=== PATIENT | male | born 1935 | race Caucasian/White ===

== ENCOUNTER 2018-04-25 02:53 | Outpatient (CLI) | payer MEDICARE, SELFPAY ==
[2018-04-25 11:13] LABS: Anion Gap 7.8 mmol/L (3-11); BUN 17 mg/dL (7-18); CO2 26.2 mmol/L (21.0-32.0); CREATININE 1.66 mg/dL (0.70-1.30); Calcium 8.7 mg/dL (8.5-10.1); Chloride 109 mmol/L (98-107); Estimated GFR 39.96 (mL/min/1.73m2); Glucose 103 mg/dL (70-100); Potassium 4.5 mmol/L (3.5-5.1); Sodium 143 mmol/L (136-145)
== END 2018-04-25 02:54 ==
PROVIDERS: PCP Family Medicine; Visit Provider Family Medicine
DX: N18.3 Chronic kidney disease, stage 3 (moderate) (principal)
CPT/HCPCS: 36415; 80048

== ENCOUNTER 2018-05-25 13:55 | Outpatient (CLI) | payer MEDICARE, BC, SELFPAY ==
[2018-05-25 14:22] LABS: Abs Immature Grans 0.02 k/cumm (0.0-0.09); Absolute Basophil Count 0.03 k/cumm (0.0-0.2); Absolute Eosinophil Count 0.14 k/cumm (0.0-0.7); Absolute Lymphocyte Count 1.63 k/cumm (1.2-3.4); Absolute Monocyte Count 0.56 k/cumm (0.11-0.7); Absolute Neutrophil Count 4.33 k/cumm (1.2-6.7); Basophils % 0.4; Eosinophils % 2.1; HCT 43.3 % (40.0-50.0); HGB 14.6 g/dL (13.5-17.5); Immature Grans % 0.3; Lymphocytes % 24.3; Mean Corp. HGB Concentration 33.7 g/dL (32.0-36.0); Mean Corpuscular Hemoglobin 31.8 pg (27.0-33.0); Mean Corpuscular Volume 94.3 fL (80-95); Mean Platelet Volume 10.3 fL (8.0-11.0); Monocytes % 8.3; Neutrophils % 64.6; Platelet Count 168 x1000/uL (130-400); RBC 4.59 m/cumm (4.50-6.00); RBC Distribution Width 13.4 % (11.8-14.1); White Blood Cell Count 6.71 k/cumm (4.4-10.8)
[2018-05-25 15:17] LABS: LDH 138 U/L (85-227)
== END 2018-05-25 14:15 ==
PROVIDERS: PCP Family Medicine; Visit Provider Family Medicine
DX: R21 Rash and other nonspecific skin eruption (principal); L29.9 Pruritus, unspecified
CPT/HCPCS: 36415; 83615; 85025

== ENCOUNTER 2019-06-19 11:08 | Outpatient (CLI) | payer MEDICARE, SELFPAY ==
[2019-06-19 12:49] LABS: Anion Gap 6.1 mmol/L (3-11); BUN 18 mg/dL (7-18); CO2 28.9 mmol/L (21.0-32.0); CREATININE 1.38 mg/dL (0.70-1.30); Calcium 9.2 mg/dL (8.5-10.1); Chloride 108 mmol/L (98-107); Estimated GFR 49.33 (mL/min/1.73m2); Glucose 68 mg/dL (70-100); Potassium 4.6 mmol/L (3.5-5.1); Sodium 143 mmol/L (136-145)
== END 2019-06-19 11:28 ==
PROVIDERS: PCP Family Medicine; Visit Provider Family Medicine
DX: N18.9 Chronic kidney disease, unspecified (principal)
CPT/HCPCS: 36415; 80048

== ENCOUNTER 2020-02-03 01:51 | Outpatient (CLI) | payer MEDICARE, BC, SELFPAY ==
[2020-02-03 14:32] LABS: Anion Gap 9.6 mmol/L (3-11); BUN 17 mg/dL (7-18); CO2 27.4 mmol/L (21.0-32.0); CREATININE 1.57 mg/dL (0.70-1.30); Calcium 8.6 mg/dL (8.5-10.1); Chloride 107 mmol/L (98-107); Glucose 68 mg/dL (74-106); Potassium 4.2 mmol/L (3.5-5.1); Sodium 144 mmol/L (136-145)
== END 2020-02-03 02:11 ==
PROVIDERS: PCP Family Medicine; Visit Provider Family Medicine
DX: N18.9 Chronic kidney disease, unspecified (principal)
CPT/HCPCS: 36415; 80048

== ENCOUNTER 2020-02-17 19:15 | Outpatient (REF) | payer MEDICARE, BC, SELFPAY ==
[2020-02-17 20:00] LABS: TSH (W/Ref FT4) 0.31 uIU/mL (0.36-3.74); Vitamin B12 318 pg/mL (193-986)
[2020-02-17 20:48] LABS: FREE T4 1.05 ng/dL (0.76-1.46)
[2020-02-19 11:23] LABS: Syphilis Serology (RPR) Negative (Negative)
== END 2020-02-17 19:35 ==
LOC: LBN 19:15
PROVIDERS: PCP Family Medicine; Visit Provider Family Medicine
DX: R41.3 Other amnesia (principal); I10 Essential (primary) hypertension
CPT/HCPCS: 82607; 84439; 84443; 86592

== ENCOUNTER → 2020-03-09 09:34 | Outpatient (BNVA) | payer MEDICARE, BC, SELFPAY | PROVIDERS: PCP Family Medicine; Referring Provider Family Medicine; Visit Provider Nurse Practitioner Adult Health | DX: G31.83 Neurocognitive disorder with Lewy bodies (principal); F02.80 Dementia in other diseases classified elsewhere, unspecified severity, without behavioral disturbance, psychotic disturbance, mood disturbance, and anxiety; I10 Essential (primary) hypertension | CPT/HCPCS: 99204; 99215 ==

== ENCOUNTER → 2020-04-06 12:59 | Outpatient (BNVA) | payer MEDICARE, BC, SELFPAY | PROVIDERS: PCP Family Medicine; Referring Provider Family Medicine; Visit Provider Nurse Practitioner Adult Health | DX: G31.83 Neurocognitive disorder with Lewy bodies (principal); F02.80 Dementia in other diseases classified elsewhere, unspecified severity, without behavioral disturbance, psychotic disturbance, mood disturbance, and anxiety; I10 Essential (primary) hypertension | CPT/HCPCS: 99213 ==

== ENCOUNTER 2020-08-11 11:44 | Emergency (ER) | payer MEDICARE, BC, SELFPAY ==
[2020-08-11] VITALS (26 sets, daily range): BP systolic 141–193; BP diastolic 83–99; PULSE 77–94; RESP 15–24; TEMP 36.8; O2SAT 86–99
--- NOTE | 2020-08-11 11:45 | RT.EKG_ITS ---
APPROVED REPORT Exam: Resting ECG Patient Location: E HR:88 bpm ECG Measurements Heart Rate 88 AXIS GA 180 P 18 QRSd 86 QRS 16 QT 392 T -1 QTc 474 Conclusion Sinus rhythm...normal P axis, V-rate 60- 99 Probable left atrial enlargement...P >50mS, <-0.10mV V1 Anteroseptal infarct, old...Q >40mS, V1-V2 I have reviewed and interpreted ECG and agree with software generated interpretation.
--- NOTE | 2020-08-11 11:54 | W.ED.GENAD ---
Discharge Plan Disposition Patient Disposition: HOME Condition: Improving Discharge Details Clinical Impression: Bilateral leg weakness, Fall, Abrasion of back Primary Care Provider: Derek Leal ED Provider: Vivian Astudillo Home Meds and New Rx's Prescriptions: Continued omeprazole 20 MG capsule,delayed release(DR/EC) 20 mg PO DAILY Qty: 90 RF: 1 multivitamin [Daily Multi-Vitamin] 1 EACH tablet 1 ea PO DAILY RF: 0 docusate sodium [Colace] 100 MG capsule 300 mg PO HS RF: 0 Probiotic 1 EACH capsule 1 ea PO DAILY RF: 0 pravastatin 20 mg tablet 20 mg PO DAILY Qty: 90 RF: 3 Discharge Instructions Instructions: Fall Prevention for Older Adults (ED), Abrasion (ED), Weakness (ED) Additional Instructions: Drink plenty of fluids and get plenty of rest. Use your walker that you have at home for ambulation to help with stabilization and prevent falls. Alternate tylenol and motrin as needed and directed for pain. Follow-up with your primary care doctor in 1 week. Return to the emergency department with any worsening or new concerning symptoms. Discharge Data Discharge Date/Time-TO BE ENTERED AT DEPARTURE: 08/11/20 15:10 Discharge Physician: Vivian Astudillo Medical Decision Making 1155 -- 85-year-old male with a history of dementia, hypertension, hyperlipidemia, chronic kidney disease, obesity presents for bilateral leg weakness and follow-up today when his legs gave out. EKG notes a rate of 88, sinus with no acute ST ischemic changes and nondiagnostic. He is afebrile and appears nontoxic. Patient has no acute complaints at this time. Lungs clear. Abdomen soft nontender. He has abrasion to his left upper back but no midline spinal tenderness. No focal deficits. Moving all extremities. Differential diagnosis includes dehydration, electrolyte abnormality, CVA, UTI, pneumonia, rib fracture. Will place an IV, bolus IV fluids, screening labs, urinalysis, CT head and cervical spine and CT chest to rule out fracture versus pneumonia and give IV Tylenol and reassess. 1445 -- Labs and imaging reviewed and unremarkable. Normal white blood cell count. Troponin negative. Urinalysis negative. CT imaging reviewed and negative. Patient reassessed and he was able to ambulate with a walker and stand on his own while bracing himself with walker. Case discussed with over the phone and patient has a walker at home that he rarely uses. Advised that I do not see indication for acute admission at this time and that he is recommended to use his walker for ambulation assistance. Advised to follow-up with a primary care doctor for evaluation and to return here with any concerns. Medical Records Medical records reviewed: Yes I reviewed the patient's medical records. Imaging Data Radiologic Study: Radiologist's impression: Laboratory Tests Range/Units 08/11/20 08/11/20 08/11/20 12:05 12:05 13:30 WBC (4.4-10.8) 10^3/uL 7.52 RBC (4.36-5.78) 10^6/uL 4.84 Hgb (13.5-17.5) g/dL 15.2 Hct (40.0-50.0) % 45.6 MCV (80-95) fL 94.2 MCH (27.0-33.0) pg 31.4 MCHC (32.0-36.0) % 33.3 RDW (11.8-14.1) % 12.8 Plt Count (130-400) 10^3/uL 156 MPV (8.0-11.0) fL 10.4 Immature Gran % 0.4 Neutrophils % 78.3 Lymphocytes % 13.3 Monocytes % 6.0 Eosinophils % 1.6 Basophils % 0.4 Nucleated RBC % % 0 Absolute Neutrophils (1.2-6.7) 10^3/uL 5.89 Absolute Lymphocytes (1.2-3.4) 10^3/uL 1.00 L Absolute Monocytes (0.1-0.8) 10^3/uL 0.45 Absolute Eosinophils (0.0-0.7) 10^3/uL 0.12 Absolute Basophils (0.0-0.2) 10^3/uL 0.03 Sodium (136-145) mmol/L 141 Potassium (3.5-5.1) mmol/L 4.2 Chloride (98-107) mmol/L 108 H Carbon Dioxide (21.0-32.0) mmol/L 28.9 Anion Gap (3-11) mmol/L 4.1 BUN (7-18) mg/dL 16 Creatinine (0.70-1.30) mg/dL 1.58 H Estimated GFR/1.73 m2 (mL/min/1.73m2) 41.99 Glucose (74-106) mg/dL 76 Calcium (8.5-10.1) mg/dL 9.0 Magnesium (1.8-2.4) mg/dL 2.0 Total Bilirubin (0.2-1.0) mg/dL 0.5 AST (15-37) U/L 14 L ALT (16-63) U/L 19 Alkaline Phosphatase (46-116) U/L 76 Troponin I (<0.06) ng/mL < 0.05 Total Protein (6.4-8.2) g/dL 7.3 Albumin (3.4-5.0) g/dL 3.8 Urine Color (Yellow) Yellow Urine Clarity (Clear) Clear Urine pH (5-8) 6.0 Ur Specific [place] (1.005-1.025) 1.025 Urine Protein (Negative) mg/dL Negative Urine Ketones (Negative) mg/dL Negative Urine Blood (Negative) Negative Urine Nitrite (Negative) Negative Urine Bilirubin (Negative) Negative Urine Urobilinogen (Up TO 0.2) EU/dL 0.2 Ur Leukocyte Esterase (Negative) Negative Urine Glucose (Negative) mg/dL Negative CT HEAD CERVICAL SPINE WO CLINICAL HISTORY: s/p fall, r/o acute process. TECHNIQUE: Imaging Protocol: Axial computed tomography images with coronal and sagittal reformatted images were created and reviewed COMPARISON: No exams were available for comparison FINDINGS: Head CT Ventricles and Extra axial spaces: Normal in size and morphology for the patient's age. Hemorrhage: None. Cerebral parenchyma: Normal. Mild atrophy, consistent with patient's age. Midline shift: None. Brainstem/Cerebellum: Normal. Calvarium: Normal. Visualized Paranasal sinuses/Mastoids: Clear. Cervical Spine CT BONES: Vertebral body heights are maintained. Alignment is normal. There is no evidence of acute fracture. Degenerative disc changes and facet degenerative changes are seen . SOFT TISSUES: No paraspinal hematoma. The airway appears intact. No pneumothorax is seen at the lung apices. IMPRESSION: Head CT: No acute abnormality. C-spine CT: Degenerative changes, no acute abnormality. CT CHEST WO CLINICAL HISTORY: s/p fall, r/o pneumonia/rib fx TECHNIQUE: Imaging Protocol: Axial computed tomography images with coronal and sagittal reformatted images were created and reviewed CONTRAST MATERIAL: Noncontrast. COMPARISON: No exams were available for comparison FINDINGS: Tracheobronchial tree: Patent where visualized. Mediastinum and Saranya: No dominant adenopathy or fluid collection. Pulmonary parenchyma: Respiratory motion. The lungs are suboptimally inflated. Dependent changes are seen. No consolidation or dominant measurable mass. Pleura: No effusion or pneumothorax. Heart: The heart is mildly dilated. Mitral annular and coronary artery calcifications are seen. Aorta: Thoracic aorta non-dilated. Upper abdomen: Unremarkable. Status post cholecystectomy. Lymph nodes: Within normal limits. Bones: Degenerative disc changes and mild scoliosis in the thoracic spine. No displaced rib fracture. Soft tissues: Unremarkable. IMPRESSION: Limited evaluation of the lungs due to poor pulmonary inflation and respiratory motion. There is no evidence of consolidation, effusion or pneumothorax. No displaced rib fractures are seen. Lab Data Lab results reviewed: Yes I reviewed the patient's lab results. Labs: Laboratory Tests Range/Units 08/11/20 08/11/20 08/11/20 12:05 12:05 13:30 WBC (4.4-10.8) 10^3/uL 7.52 RBC (4.36-5.78) 10^6/uL 4.84 Hgb (13.5-17.5) g/dL 15.2 Hct (40.0-50.0) % 45.6 MCV (80-95) fL 94.2 MCH (27.0-33.0) pg 31.4 MCHC (32.0-36.0) % 33.3 RDW (11.8-14.1) % 12.8 Plt Count (130-400) 10^3/uL 156 MPV (8.0-11.0) fL 10.4 Immature Gran % 0.4 Neutrophils % 78.3 Lymphocytes % 13.3 Monocytes % 6.0 Eosinophils % 1.6 Basophils % 0.4 Nucleated RBC % % 0 Absolute Neutrophils (1.2-6.7) 10^3/uL 5.89 Absolute Lymphocytes (1.2-3.4) 10^3/uL 1.00 L Absolute Monocytes (0.1-0.8) 10^3/uL 0.45 Absolute Eosinophils (0.0-0.7) 10^3/uL 0.12 Absolute Basophils (0.0-0.2) 10^3/uL 0.03 Sodium (136-145) mmol/L 141 Potassium (3.5-5.1) mmol/L 4.2 Chloride (98-107) mmol/L 108 H Carbon Dioxide (21.0-32.0) mmol/L 28.9 Anion Gap (3-11) mmol/L 4.1 BUN (7-18) mg/dL 16 Creatinine (0.70-1.30) mg/dL 1.58 H Estimated GFR/1.73 m2 (mL/min/1.73m2) 41.99 Glucose (74-106) mg/dL 76 Calcium (8.5-10.1) mg/dL 9.0 Magnesium (1.8-2.4) mg/dL 2.0 Total Bilirubin (0.2-1.0) mg/dL 0.5 AST (15-37) U/L 14 L ALT (16-63) U/L 19 Alkaline Phosphatase (46-116) U/L 76 Troponin I (<0.06) ng/mL < 0.05 Total Protein (6.4-8.2) g/dL 7.3 Albumin (3.4-5.0) g/dL 3.8 Urine Color (Yellow) Yellow Urine Clarity (Clear) Clear Urine pH (5-8) 6.0 Ur Specific [place] (1.005-1.025) 1.025 Urine Protein (Negative) mg/dL Negative Urine Ketones (Negative) mg/dL Negative Urine Blood (Negative) Negative Urine Nitrite (Negative) Negative Urine Bilirubin (Negative) Negative Urine Urobilinogen (Up TO 0.2) EU/dL 0.2 Ur Leukocyte Esterase (Negative) Negative Urine Glucose (Negative) mg/dL Negative ECG Data Attestation: I personally reviewed and interpreted this ECG (s) as follows: Interpretation: Rate of 88, sinus, T wave inversion in lead III. No acute ST elevation or depression. MN 180. QRS 86. QTc 474. HPI General Mode of arrival: EMS. Date/Time Provider Initiated Documentation: 08/11/20 11:47. Limitations to Documentation: no limitations. Information obtained by: patient. HPI Narrative: Patient is an 85-year-old male with a history of dementia, hypertension, hyperlipidemia, chronic kidney disease, obesity presents for follow-up today after both of my legs gave out while walking. Patient states he was walking from the bathroom when he felt both of his legs gave out and he fell to the ground. He states he is unsure if he hit his head but denies any LOC or vomiting. He states he had been feeling fine yesterday and today. He denies any recent travel, recent known sick contacts, recent known exposure to coronavirus, recent antibiotics or recent hospital admissions. He denies any fever, chest pain, shortness of breath, abdominal pain, nausea, vomiting, diarrhea, urinary symptoms, headache or dizziness. Related Data Home Medications Medication Instructions Recorded Confirmed omeprazole 20 mg PO DAILY #90 tab-cap 12/26/12 08/11/20 multivitamin [Daily Multi-Vitamin] 1 ea PO DAILY tab 12/06/16 08/11/20 docusate sodium [Colace] 300 mg PO HS tab-cap 01/30/17 08/11/20 Probiotic 1 ea PO DAILY cap 03/20/17 08/11/20 pravastatin 20 mg tablet 20 mg PO DAILY #90 tab-cap 12/30/19 08/11/20 Previous Rx's Medication Instructions Recorded pravastatin 20 mg tablet 20 mg PO DAILY #90 tab-cap 12/30/19 Allergies Allergy/AdvReac Type Severity Reaction Status Date / Time No Known Drug Allergies Allergy Verified 08/11/20 11:53 General Stated Complaint: Dizzy/Sync ALEJANDRO: 2 Review of Systems All systems reviewed & are unremarkable except as noted in HPI and below Constitutional Constitutional: Reports as per HPI, Denies chills and Denies fever(s) Eyes Eyes: Denies blurry vision ENT Ears, Nose, Mouth, and Throat: Denies dizziness, Denies sore throat and Denies throat swelling Cardiovascular Cardiovascular: Denies chest pain and Denies dyspnea Respiratory Respiratory: Denies cough and Denies dyspnea Gastrointestinal Gastrointestinal: Denies abdominal pain, Denies diarrhea and Denies vomiting Genitourinary Genitourinary: Denies hematuria and Denies dysuria Musculoskeletal Musculoskeletal: Denies back pain and Denies numbness Integumentary/Breasts Skin/Breast: Denies lesions and Denies rash Neurologic Neurologic: Denies dizziness, Denies localized weakness, Denies numbness and Reports other (legs gave out) Allergic/Immunologic Allergic/Immunologic: Denies throat swelling [facility] Medical History Constipation DJD (degenerative joint disease) Essential hypertension Hallucination Heart burn Hyperlipidemia Lewy body dementia Obesity Osteoarthrosis involving shoulder region Small bowel obstruction Tubular adenoma of colon Varicose veins Surgical History Arthroplasty of knee 1986 Arthroscopy, Shoulder 1986 Cholecystectomy (07/16/12) JOSIAS Colonoscopy - IV Sedation 2008 EGD - IV Sedation 2004-Dr. Devora Meléndez shoulder (01/15/14) Balbir Leblanc, ? total shoulder prosthesis Replacement of total knee joint (10/07/14) Rika knee, Balbir Booker Transurethral prostatectomy 1986 Family History Mother No problems noted. Father , stomach ca at age 64. No problems noted. Other Brain tumor Breast cancer Rheumatic fever Stomach cancer TIA (transient ischemic attack) Social History Smoking/Tobacco Use Status: Former Tobacco Use Smokeless tobacco user: other Smoking risk assessment performed?: Yes Alcohol Intake: never Drug use: Never Substance use type: does not use Household members: spouse Housing: house Number of Children: 3 Communication Needs: None Pets and animals: No Current gender identity: male What is your relationship status?: Panel score (0-1 are the most socially isolated patients): 1 What type of physical activity do you participate in: none Seatbelt use: always 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 Working smoke detector in home: Yes Fire extinguisher in home: No Carbon monox detector in home: Yes Do you feel safe in your relationship?: Yes Exam Const General: cooperative and no acute distress Orientation: alert, awake and oriented x3 HENMT Head: normal to inspection Ears: hearing grossly normal bilaterally, external ears normal and TM's normal bilaterally General nose exam: external nose normal Face and sinus: normal facial exam Mouth: oral mucosae normal Teeth and gingiva: dentition normal Throat: posterior oropharynx normal Eyes General: appearance normal, both eyes and all related structures Eyelids: eyelids normal Pupils: PERRL EOM: EOM intact bilaterally Neck Neck: normal visual inspection Lymphatic: no lymphadenopathy noted Chest Chest: normal inspection of the chest Resp Effort & Inspection: normal respiratory effort and able to speak in complete sentences Auscultation: clear to auscultation bilaterally Cardio Rate: regular rate Rhythm: regular rhythm GI Inspection: normal to inspection Palpation: soft, not firm, no guarding, no hepatosplenomegaly, no masses and nontender Auscultation: normal bowel sounds Back/Spine/Pelvis Back: no CVA tenderness Cervical Spine: No cervical spinal tenderness Thoracic/Lumbar Spine: No thoracic spinal tenderness and No lumbar spinal tenderness Back/spine/pelvis image: 1. Superficial scattered abrasions. No lacerations, no active bleeding. No crepitus or step-off. Skin General skin exam: no rashes or lesions noted Neuro General: patient alert and patient awake Cranial Nerves: CN's II-XI intact bilaterally Cognition: normal cognition Speech: speech normal Gait: normal gait Motor: muscle tone normal throughout and strength 5/5 throughout Sensory Exam: no sensory deficits noted Extrem General: normal to inspection, full ROM and capillary refill normal Other: No pelvis instability. No pain with range of motion of bilateral upper and lower extremities. No orthopedic deformities noted. Psych Appearance: grossly normal Mental Status: mental status grossly normal Speech and Movement: speech and movement normal Affect: normal affect Thought Process: normal Course Vital Signs Vital signs: Vital Signs Temperature 98.2 F 08/11/20 11:45 Pulse 89 08/11/20 11:45 Respiratory Rate 22 08/11/20 11:45 Blood Pressure 193/87 H 08/11/20 11:45 Pulse Oximetry 97 08/11/20 11:45 Temperature 98.2 F 08/11/20 11:45 Temperature Source Temporal Artery Scan 08/11/20 11:45 Pulse 89 08/11/20 11:45 Respiratory Rate 22 08/11/20 11:45 Respiratory Effort Non-Labored 08/11/20 11:51 Blood Pressure 193/87 H 08/11/20 11:45 Blood Pressure Position Supine 08/11/20 11:45 Pulse Oximetry 97 08/11/20 11:45 Oxygen Delivery Method Room Air 08/11/20 11:45 Oxygen Flow Rate 0 08/11/20 11:45 Pain Level 0 08/11/20 11:45
--- NOTE | 2020-08-11 12:00 | DI.CT_ITS ---
EXAM: CT CHEST WO CLINICAL HISTORY: s/p fall, r/o pneumonia/rib fx TECHNIQUE: Imaging Protocol: Axial computed tomography images with coronal and sagittal reformatted images were created and reviewed CONTRAST MATERIAL: Noncontrast. COMPARISON: No exams were available for comparison FINDINGS: Tracheobronchial tree: Patent where visualized. Mediastinum and Saranya: No dominant adenopathy or fluid collection. Pulmonary parenchyma: Respiratory motion. The lungs are suboptimally inflated. Dependent changes ar e seen. No consolidation or dominant measurable mass. Pleura: No effusion or pneumothorax. Heart: The heart is mildly dilated. Mitral annular and coronary artery calcifications are seen. Aorta: Thoracic aorta non-dilated. Upper abdomen: Unremarkable. Status post cholecystectomy. Lymph nodes: Within normal limits. Bones: Degenerative disc changes and mild scoliosis in the thoracic spine. No displaced rib fracture . Soft tissues: Unremarkable. IMPRESSION: Limited evaluation of the lungs due to poor pulmonary inflation and respiratory motion. There is no evidence of consolidation, effusion or pneumothorax. No displaced rib fractures are seen. RADIATION DOSE DELIVERED: 873.24mGy.cm Total DLP DATA REPOSITORY: All CT scans at this facility are submitted to the National Radiology Data Registry (NRDR) Dose Index Registry (DIR) with the [employer] ([employer]). RADIATION OPTIMIZATION: All CT scans at this facility use at least one of these dose optimization te chniques: automated exposure control; mA and/or kV adjustment per patient size (includes targeted exa ms where dose is matched to clinical indication); or iterative reconstruction.
--- NOTE | 2020-08-11 12:00 | DI.CT_ITS ---
EXAM: CT HEAD CERVICAL SPINE WO CLINICAL HISTORY: s/p fall, r/o acute process. TECHNIQUE: Imaging Protocol: Axial computed tomography images with coronal and sagittal reformatted images were created and reviewed COMPARISON: No exams were available for comparison FINDINGS: Head CT Ventricles and Extra axial spaces: Normal in size and morphology for the patient's age. Hemorrhage: None. Cerebral parenchyma: Normal. Mild atrophy, consistent with patient's age. Midline shift: None. Brainstem/Cerebellum: Normal. Calvarium: Normal. Visualized Paranasal sinuses/Mastoids: Clear. Cervical Spine CT BONES: Vertebral body heights are maintained. Alignment is normal. There is no evidence of acute frac ture. Degenerative disc changes and facet degenerative changes are seen . SOFT TISSUES: No paraspinal hematoma. The airway appears intact. No pneumothorax is seen at the lung apices. IMPRESSION: Head CT: No acute abnormality. C-spine CT: Degenerative changes, no acute abnormality. RADIATION DOSE DELIVERED: LINK-TO-SR Total DLP DATA REPOSITORY: All CT scans at this facility are submitted to the National Radiology Data Registry (NRDR) Dose Index Registry (DIR) with the [employer] ([employer]). RADIATION OPTIMIZATION: All CT scans at this facility use at least one of these dose optimization te chniques: automated exposure control; mA and/or kV adjustment per patient size (includes targeted exa ms where dose is matched to clinical indication); or iterative reconstruction.
[2020-08-11 12:15] LABS: Abs Immature Grans 0.03 10^3/uL (0.0-0.06); Absolute Basophil Count 0.03 10^3/uL (0.0-0.2); Absolute Eosinophil Count 0.12 10^3/uL (0.0-0.7); Absolute Monocyte Count 0.45 10^3/uL (0.1-0.8); Absolute Neutrophil Count 5.89 10^3/uL (1.2-6.7); Basophils % 0.4; Eosinophils % 1.6; HCT 45.6 % (40.0-50.0); HGB 15.2 g/dL (13.5-17.5); Immature Grans % 0.4; Lymphocytes % 13.3; MCH 31.4 pg (27.0-33.0); MCHC 33.3 % (32.0-36.0); MCV 94.2 fL (80-95); MPV 10.4 fL (8.0-11.0); Neutrophils % 78.3; Nucleated RBC 0 %; Platelet Count 156 10^3/uL (130-400); RBC 4.84 10^6/uL (4.36-5.78); RDW 12.8 % (11.8-14.1); WBC 7.52 10^3/uL (4.4-10.8)
[2020-08-11 12:30] LABS: ALT 19 U/L (16-63); AST 14 U/L (15-37); Albumin 3.8 g/dL (3.4-5.0); Alkaline Phosphatase 76 U/L (46-116); Anion Gap 4.1 mmol/L (3-11); BUN 16 mg/dL (7-18); Bilirubin, Total 0.5 mg/dL (0.2-1.0); CO2 28.9 mmol/L (21.0-32.0); CREATININE 1.58 mg/dL (0.70-1.30); Chloride 108 mmol/L (98-107); Estimated GFR 41.99 (mL/min/1.73m2); Glucose 76 mg/dL (74-106); Potassium 4.2 mmol/L (3.5-5.1); Sodium 141 mmol/L (136-145); Total Protein 7.3 g/dL (6.4-8.2); Troponin I < 0.05 ng/mL (<0.06)
[2020-08-11] MEDS: ACETAMINOPHEN 1,000 MG/100 ML BTL 400 MG IVPB (13:11)
[2020-08-11] MEDS: Normal Saline 1,000 ML 1000 ML IV (13:11)
[2020-08-11 13:36] LABS: Bilirubin Negative (Negative); Blood Negative (Negative); Clarity Clear (Clear); Glucose Negative (Negative); Ketones Negative (Negative); Leukocyte Esterase Negative (Negative); Nitrite Negative (Negative); Specific Gravity 1.025 (1.005-1.025); Urobilinogen 0.2 EU/dL (Up TO 0.2)
== END 2020-08-11 15:10 | disposition home or self-care (01) ==
PROVIDERS: Emergency Provider Physician Assistant; PCP Family Medicine
DX: M62.81 Muscle weakness (generalized) (principal); S20.412A Abrasion of left back wall of thorax, initial encounter; W18.39XA Other fall on same level, initial encounter; G31.83 Neurocognitive disorder with Lewy bodies; F02.80 Dementia in other diseases classified elsewhere, unspecified severity, without behavioral disturbance, psychotic disturbance, mood disturbance, and anxiety; I12.9 Hypertensive chronic kidney disease with stage 1 through stage 4 chronic kidney disease, or unspecified chronic kidney disease; N18.9 Chronic kidney disease, unspecified
CPT/HCPCS: 36415; 71250; 80053; 93005; 96361; 96374; 99285; 70450; 72125; 81003; 83735; 84484; 85025; 93010; J0131

== ENCOUNTER → 2020-08-24 08:24 | Outpatient (BNVA) | payer MEDICARE, BC, SELFPAY | PROVIDERS: PCP Family Medicine; Referring Provider Family Medicine; Visit Provider Nurse Practitioner Adult Health | DX: G31.83 Neurocognitive disorder with Lewy bodies (principal); F02.80 Dementia in other diseases classified elsewhere, unspecified severity, without behavioral disturbance, psychotic disturbance, mood disturbance, and anxiety | CPT/HCPCS: 99212; 99441 ==

== ENCOUNTER → 2020-10-29 13:29 | Outpatient (BNVA) | payer MEDICARE, BC, SELFPAY | PROVIDERS: PCP Family Medicine; Referring Provider Family Medicine; Visit Provider Nurse Practitioner Adult Health | DX: G62.9 Polyneuropathy, unspecified (principal); G31.83 Neurocognitive disorder with Lewy bodies; I95.1 Orthostatic hypotension; R26.81 Unsteadiness on feet | CPT/HCPCS: 99213; 99215 ==

== ENCOUNTER 2020-11-10 02:22 | Outpatient (CLI) | payer MEDICARE, BC, SELFPAY ==
[2020-11-10 09:30] LABS: Hemoglobin A1C 5.4 % (<5.7)
[2020-11-11 14:23] LABS: Albumin 58.9 % (55.8-66.1); Total Protein 6.6 g/dL (6.3-8.2)
== END 2020-11-10 02:23 | disposition home or self-care (01) ==
LOC: LBO 02:23
PROVIDERS: PCP Family Medicine; Visit Provider Nurse Practitioner Adult Health
DX: R73.9 Hyperglycemia, unspecified (principal); G62.9 Polyneuropathy, unspecified
CPT/HCPCS: 36415; 83036; 84165

== ENCOUNTER → 2020-11-17 14:58 | Outpatient (BNVA) | payer MEDICARE, BC, SELFPAY | PROVIDERS: PCP Family Medicine; Referring Provider Family Medicine; Visit Provider Psychiatry & Neurology Neurology | DX: G31.83 Neurocognitive disorder with Lewy bodies (principal); F02.80 Dementia in other diseases classified elsewhere, unspecified severity, without behavioral disturbance, psychotic disturbance, mood disturbance, and anxiety; R44.3 Hallucinations, unspecified; R41.3 Other amnesia; I95.1 Orthostatic hypotension; R26.81 Unsteadiness on feet | CPT/HCPCS: 99215; G2212 ==

== ENCOUNTER → 2020-12-22 07:50 | Outpatient (BNVA) | payer MEDICARE, BC, SELFPAY | PROVIDERS: PCP Family Medicine; Referring Provider Family Medicine; Visit Provider Nurse Practitioner Adult Health | DX: R26.81 Unsteadiness on feet (principal); G31.83 Neurocognitive disorder with Lewy bodies; F02.80 Dementia in other diseases classified elsewhere, unspecified severity, without behavioral disturbance, psychotic disturbance, mood disturbance, and anxiety | CPT/HCPCS: 99213; 99443 ==

== ENCOUNTER → 2021-02-08 12:52 | Outpatient (BNVA) | payer MEDICARE, BC, SELFPAY | PROVIDERS: PCP Family Medicine; Referring Provider Family Medicine; Visit Provider Nurse Practitioner Adult Health | DX: G31.83 Neurocognitive disorder with Lewy bodies (principal); F02.80 Dementia in other diseases classified elsewhere, unspecified severity, without behavioral disturbance, psychotic disturbance, mood disturbance, and anxiety | CPT/HCPCS: 99213; 99215 ==

== ENCOUNTER 2021-05-13 17:53 | Inpatient (IN) | payer MEDICARE, BC, SELFPAY ==
[2021-05-13] VITALS (41 sets, daily range): BP systolic 139–221; BP diastolic 79–116; PULSE 69–86; RESP 16–26; TEMP 36.5–37.1; O2SAT 93–97
--- NOTE | 2021-05-13 17:52 | ED.GENADUL_ITS ---
Discharge Plan Disposition Patient Disposition: [facility] INPATIENT Condition: Stable Discharge Details Clinical Impression: Ambulatory dysfunction, Generalized weakness, Frequent falls Admit Date/Time: 05/13/21 19:43 Admit Provider: Sterling Rod Attending Provider: Sterling Rod Primary Care Provider: Derek Leal ED Provider: Vivian Astudillo Discharge Data Discharge Date/Time-TO BE ENTERED AT DEPARTURE: 05/13/21 21:55 Medical Decision Making 85-year-old male with a history of dementia, hypertension, hyperlipidemia, chronic kidney disease, obesity presents for frequent falls today. Denies any blunt injury or fall to the ground today. states this is consistent with his usual frequent falls associated with his legs giving out . Blood pressure hypertensive otherwise vitals within normal limits. Patient is oriented x2 which is his baseline, not oriented to time. He has no focal deficits on exam. He is moving all extremities but appears generally weak. states she is concerned about taking patient home as she is the only 1 to help him at home and she is unable to assist him when needed with his walker. History and presentation does not appear consistent with acute CVA. Screening labs obtained on arrival and unremarkable for acute findings. Urinalysis negative for UTI. Ambulated patient and he was able to ambulate with his walker with assistance. again expressed concern with taking patient home as he can ambulate at times but other times is unable. She states she will not take him home as she is concerned about being able to handle him alone. We will admit patient for evaluation with PT and consideration for rehab if needed. Case discussed with hospitalist accepts patient for admission. Medical Records Medical records reviewed: Yes I reviewed the patient's medical records. Lab Data Lab results reviewed: Yes I reviewed the patient's lab results. Labs: Laboratory Tests Range/Units 05/13/21 05/13/21 05/13/21 18:17 18:17 18:30 WBC (4.4-10.8) 10^3/uL 6.29 RBC (4.36-5.78) 10^6/uL 4.68 Hgb (13.5-17.5) g/dL 14.6 Hct (40.0-50.0) % 44.6 MCV (80-95) fL 95.3 H MCH (27.0-33.0) pg 31.2 MCHC (32.0-36.0) % 32.7 RDW (11.8-14.1) % 12.5 Plt Count (130-400) 10^3/uL 162 MPV (8.0-11.0) fL 10.3 Immature Gran % 0.2 Neutrophils % 66.4 Lymphocytes % 22.1 Monocytes % 8.1 Eosinophils % 2.9 Basophils % 0.3 Nucleated RBC % % 0 Absolute Neutrophils (1.2-6.7) 10^3/uL 4.18 Absolute Lymphocytes (1.2-3.4) 10^3/uL 1.39 Absolute Monocytes (0.1-0.8) 10^3/uL 0.51 Absolute Eosinophils (0.0-0.7) 10^3/uL 0.18 Absolute Basophils (0.0-0.2) 10^3/uL 0.02 Sodium (136-145) mmol/L 143 Potassium (3.5-5.1) mmol/L 3.9 Chloride (98-107) mmol/L 109 H Carbon Dioxide (21.0-32.0) mmol/L 27.6 Anion Gap (3-11) mmol/L 6.4 BUN (7-18) mg/dL 18 Creatinine (0.70-1.30) mg/dL 1.5 H Estimated GFR/1.73 m2 (mL/min/1.73m2) 44.59 Glucose (74-106) mg/dL 76 Calcium (8.5-10.1) mg/dL 8.7 Total Bilirubin (0.2-1.0) mg/dL 0.3 AST (15-37) U/L 10 L ALT (16-63) U/L 19 Alkaline Phosphatase (46-116) U/L 74 Total Protein (6.4-8.2) g/dL 7.1 Albumin (3.4-5.0) g/dL 3.7 Urine Color (Yellow) Yellow Urine Clarity (Clear) Clear Urine pH (5-8) 5.5 Ur Specific [place] (1.005-1.025) >= 1.030 H Urine Protein (Negative) mg/dL Negative Urine Ketones (Negative) mg/dL Trace H Urine Blood (Negative) Negative Urine Nitrite (Negative) Negative Urine Bilirubin (Negative) Negative Urine Urobilinogen (Up TO 0.2) EU/dL 0.2 Ur Leukocyte Esterase (Negative) Negative Urine Glucose (Negative) mg/dL Negative ECG Data Attestation: I personally reviewed and interpreted this ECG (s) as follows: Interpretation: Rate of 79, sinus, no acute ST elevation or depression. VA 190. QRS 90. QTc 454. HPI General Mode of arrival: EMS . Date/Time Provider Initiated Documentation: 05/13/21 18:02 . Limitations to Documentation: no limitations . Information obtained by: patient and family . HPI Narrative: Patient is an 85-year-old male with a history of dementia, hypertension, hyperlipidemia, chronic kidney disease, obesity presents for frequent falls today. states that patient uses a walker at baseline for ambulation but has a history of his legs giving out . Patient states he was walking several times today and his legs gave out and he fell but was able to catch himself. states just prior to arrival, he was unable to stand up at all due to leg weakness. She states this is consistent with his previous episodes of difficulty with ambulation and leg weakness and frequent falls. She denies any recent fever, vomiting, diarrhe a, chest pain, shortness of breath. Related Data Home Medications Medication Instructions Recorded Confirmed omeprazole 20 mg PO DAILY #90 tab-cap 12/26/12 05/13/21 multivitamin [Daily Multi-Vitamin] 1 ea PO DAILY tab 12/06/16 05/13/21 docusate sodium [Colace] 300 mg PO HS tab-cap 01/30/17 05/13/21 Probiotic 1 ea PO DAILY cap 03/20/17 05/13/21 mecobalamin (vitamin B12) 1,000 1,000 mcg PO DAILY 12/22/20 05/13/21 mcg chewable tablet pravastatin 10 mg tablet 10 mg PO QHS #1 tab 03/12/21 05/13/21 Previous Rx's Medication Instructions Recorded pravastatin 10 mg tablet 10 mg PO QHS #1 tab 03/12/21 Allergies Allergy/AdvReac Type Severity Reaction Status Date / Time No Known Drug Allergies Allergy Verified 05/13/21 18:04 General ALEJANDRO: 2 Review of Systems All systems reviewed & are unremarkable except as noted in HPI and below Constitutional Constitutional: Reports as per HPI, Denies chills, Denies fever(s) and Reports weakness Eyes Eyes: Denies blurry vision ENT Ears, Nose, Mouth, and Throat: Denies dizziness, Denies sore throat and Denies throat swelling Cardiovascular Cardiovascular: Denies chest pain and Denies dyspnea Respiratory Respiratory: Denies cough and Denies dyspnea Gastrointestinal Gastrointestinal: Denies abdominal pain, Denies diarrhea and Denies vomiting Genitourinary Genitourinary: Denies hematuria and Denies dysuria Musculoskeletal Musculoskeletal: Denies back pain and Denies numbness Integumentary/Breasts Skin/Breast: Denies lesions and Denies rash Neurologic Neurologic: Denies dizziness, Denies localized weakness, Denies numbness and Reports weakness Allergic/Immunologic Allergic/Immunologic: Denies throat swelling [facility] Medical History Constipation DJD (degenerative joint disease) DNI (do not intubate) DNR (do not resuscitate) Essential hypertension Hallucination Heart burn Hyperlipidemia Hypotension Lewy body dementia Obesity Orthostatic hypotension Osteoarthrosis involving shoulder region POLST (Physician Orders for Life-Sustaining Treatment) Completed 08/21/2020, DNR/DNI. Small bowel obstruction Tubular adenoma of colon Unsteady gait when walking Varicose veins Surgical History Arthroplasty of knee 1987 Arthroscopy, Shoulder 1987 Cholecystectomy (07/16/12) JOSIAS Colonoscopy - IV Sedation 2008 EGD - IV Sedation 2003-Dr. Devora Melénedz shoulder (01/15/14) Balbir Leblanc, ? total shoulder prosthesis Replacement of total knee joint (10/07/14) Rika knee, Balbir Booker Transurethral prostatectomy 1986 Family History Mother No problems noted. Father , stomach ca at age 64. No problems noted. Other Brain tumor Breast cancer Rheumatic fever Stomach cancer TIA (transient ischemic attack) Social History (Updated 05/13/21 @ 22:42 by Sterling Rod) Smoking/Tobacco Use Status: Former Tobacco Use Smokeless tobacco user: other Smoking risk assessment performed?: Yes Alcohol Intake: never Drug use: Never Substance use type: does not use Household members: spouse Housing: house Number of Children: 3 Communication Needs: None Pets and animals: No Current gender identity: male What is your relationship status?: Panel score (0-1 are the most socially isolated patients): 1 What type of physical activity do you participate in: none Seatbelt use: always Drive intox or ride w/intox drive away driver: No Working smoke detector in home: Yes Fire extinguisher in home: No Carbon monox detector in home: Yes Do you feel safe at home: Yes Do you feel safe in your relationship?: Yes Additional Social history: Lives with Chasity Exam Const General: cooperative and no acute distress HENMT Head: normal to inspection Face and sinus: normal facial exam Eyes General: appearance normal, both eyes and all related structures Pupils: PERRL EOM: EOM intact bilaterally Neck Neck: normal visual inspection and No submandibular swelling Lymphatic: no lymphadenopathy noted Chest Chest: normal inspection of the chest and no tenderness Resp Effort & Inspection: normal respiratory effort and able to speak in complete sentences Auscultation: clear to auscultation bilaterally Cardio Rate: regular rate Rhythm: regular rhythm GI Inspection: normal to inspection Palpation: soft, not firm, not rigid and nontender Auscultation: normal bowel sounds Skin General skin exam: no rashes or lesions noted Neuro General: patient alert, patient awake and patient oriented x3 Cranial Nerves: CN's II-XI intact bilaterally Cognition: normal cognition Speech: speech normal Motor: muscle tone normal throughout and strength 5/5 throughout Sensory Exam: no sensory deficits noted Extrem General: normal to inspection, full ROM, capillary refill normal, no calf tenderness bilaterally and no edema Psych Appearance: grossly normal Mental Status: mental status grossly normal Speech and Movement: speech and movement normal Affect: normal affect
--- NOTE | 2021-05-13 18:00 | RT.EKG_ITS ---
APPROVED REPORT Exam: Resting ECG Reason for Exam: weakness Patient Location: E HR:79 bpm ECG Measurements Heart Rate 79 AXIS CO 190 P 15 QRSd 90 QRS 17 QT 396 T 3 QTc 454 Conclusion Sinus rhythm...normal P axis, V-rate 60- 99 Probable left atrial enlargement...P >50mS, <-0.10mV V1. Sinus. No STEMI. I have reviewed and interpreted ECG and agree with software generated interpretation.
[2021-05-13 18:22] LABS: Abs Immature Grans 0.01 10^3/uL (0.0-0.06); Absolute Basophil Count 0.02 10^3/uL (0.0-0.2); Absolute Eosinophil Count 0.18 10^3/uL (0.0-0.7); Absolute Lymphocyte Count 1.39 10^3/uL (1.2-3.4); Absolute Monocyte Count 0.51 10^3/uL (0.1-0.8); Absolute Neutrophil Count 4.18 10^3/uL (1.2-6.7); Basophils % 0.3; Eosinophils % 2.9; HCT 44.6 % (40.0-50.0); HGB 14.6 g/dL (13.5-17.5); Immature Grans % 0.2; Lymphocytes % 22.1; MCH 31.2 pg (27.0-33.0); MCHC 32.7 % (32.0-36.0); MCV 95.3 fL (80-95); MPV 10.3 fL (8.0-11.0); Monocytes % 8.1; Neutrophils % 66.4; Nucleated RBC 0 %; Platelet Count 162 10^3/uL (130-400); RBC 4.68 10^6/uL (4.36-5.78); RDW 12.5 % (11.8-14.1); RDW-SD 43.7 fL; WBC 6.29 10^3/uL (4.4-10.8)
[2021-05-13 18:37] LABS: ALT 19 U/L (16-63); AST 10 U/L (15-37); Albumin 3.7 g/dL (3.4-5.0); Alkaline Phosphatase 74 U/L (46-116); Anion Gap 6.4 mmol/L (3-11); BUN 18 mg/dL (7-18); Bilirubin, Total 0.3 mg/dL (0.2-1.0); CO2 27.6 mmol/L (21.0-32.0); CREATININE 1.5 mg/dL (0.70-1.30); Calcium 8.7 mg/dL (8.5-10.1); Chloride 109 mmol/L (98-107); Estimated GFR 44.59 (mL/min/1.73m2); Glucose 76 mg/dL (74-106); Potassium 3.9 mmol/L (3.5-5.1); Sodium 143 mmol/L (136-145); Total Protein 7.1 g/dL (6.4-8.2)
[2021-05-13 18:38] LABS: Bilirubin Negative (Negative); Blood Negative (Negative); Clarity Clear (Clear); Glucose Negative (Negative); Ketones Trace mg/dL (Negative); Leukocyte Esterase Negative (Negative); Nitrite Negative (Negative); Specific Gravity >= 1.030 (1.005-1.025); Urobilinogen 0.2 EU/dL (Up TO 0.2); pH 5.5 (5-8)
[2021-05-13] MEDS: Normal Saline 500 ML IV (19:03)
[2021-05-13 20:43] LABS: Source Nasal/Nares
[2021-05-13 21:36] LABS: COVID-19 PCR Negative (Negative)
--- NOTE | 2021-05-13 22:28 | W.PM.HP.N ---
Date of service: 05/13/21 Time of Service: 22:29 Assessment and Plan Assessment and plan (1) Ambulatory dysfunction: Status: Acute Assessment and plan: This represents an acute worsening of a chronic associated with general weakness. I do not see any signs of focal injury. This may represent a progression of his Lewy Body dementia. Admission necessary for safety, will order PT evaluation and palliative care consult. (2) Generalized weakness: Status: Acute Assessment and plan: He appears to be deconditioned, but it is unclear if there are additional causes for his weakness. Labs not revealing. No UTI, but high SG consistent with poor oral intake. SARS CoV negative. Macrocytosis with history of low normal B12, will repeat levels. TSH also slightly low last year, will repeat. I agree this is not consistent with CVA or other new intracranial pathology, so I don't think new imaging indicated.\ (3) Chronic kidney disease: Status: Chronic Assessment and plan: Cr is at his baseline. Monitor i/o. (4) Lewy body dementia: Status: Acute Assessment and plan: Appears to be gradually progressing. Palliative care consult, they have been following the case. Qualifiers: Dementia behavioral disturbance: without behavioral disturbance Qualified Code(s): G31.83 - Dementia with Lewy bodies; F02.80 - Dementia in other diseases classified elsewhere without behavioral disturbance (5) Hyperlipidemia: Status: Acute Assessment and plan: Pravastatin on his list, though PCP stopped this earlier this year. I don't see rationale given uncertain benefit of statins for primary prevention at his age. Statins can cause muscle pain, I will hold this. (6) Essential hypertension: Status: Acute Assessment and plan: BP high, but has been low in the past so not taking antihypertensives. He appears to have some autonomic dysfunction related to his Lewy body dementia. Monitor off meds, get orthostatic vitals when he is up in the morning. (7) DVT prophylaxis: Status: Acute Assessment and plan: LMWH (8) Discharge planning issues: Status: Acute Assessment and plan: Patient may need SNF for rehabilitation if not deemed to be safe after PT assessment. He is DNR/DNI, currently stable on medical floor. History of Present Illness History of Present Illness Chief Complaint: falls, general weakness, unsafe at home Narrative: 85 yo M with a history of Lewy body dementia and associated orthostatic hypotension, chronic renal insufficiency, and history of recurrent falls who was brought to the emergency department today by his after falling due to his legs giving out. She was unable to help him up. The falls are the same as the have been in past years. The falls had been improving when last seen by Palliative care in February, none for 6 months, but has fallen twice this week and his doesn't think he is safe at home. No focal weakness, but his legs give out from under him and he goes down. He hasn't hit his head or lost consciousness. No focal injuries to his body. Falling has not been associated with chest pain, palpitaitons, shortness of breath, or even dizziness this time. No focal joint injury, though he does say his feet hurt him when standing on them. history is limted by chronic dementia. Patient can answer yes/no questions, but cannot related linear history. Historical narrative is per 's report in the ED. Review of Systems Constitutional Constitutional: Denies anorexia, Denies chills, Denies fever(s), Denies headache(s), Denies poor appetite, Reports weakness and Denies weight loss Eyes Eyes: Denies change in vision, Reports irritation, Reports itchy eyes and Denies eye pain ENT Ears, Nose, Mouth, and Throat: Denies dizziness, Denies headache(s), Denies nasal congestion, Reports nasal discharge (he endorses some runny nose, but none observed) and Denies sore throat Cardiovascular Cardiovascular: Denies chest pain, Denies palpitations, Denies dyspnea and Denies orthopnea Respiratory Respiratory: Denies cough, Denies excessive phlegm production, Denies dyspnea and Denies wheezing Gastrointestinal Gastrointestinal: Denies abdominal pain, Denies melena, Denies hematochezia, Denies change in stool character, Reports constipation, Denies heartburn, Denies diarrhea, Denies nausea and Denies vomiting Genitourinary Genitourinary: Denies hematuria, Denies dysuria and Denies urinary incontinence Musculoskeletal Musculoskeletal: Denies joint swelling and Denies numbness Integumentary/Breasts Skin/Breast: Denies rash and Denies skin ulcer Neurologic Neurologic: Denies dizziness, Denies headache(s), Denies localized weakness, Reports memory loss, Denies numbness, Denies sensory deficit and Reports weakness Psychiatric Psychiatric: Reports memory loss and Denies mood swings Endocrine Endocrine: Denies palpitations Hematologic/Lymphatic Hematologic/Lymphatic: Denies easy bleeding Allergic/Immunologic Allergic/Immunologic: Reports itchy eyes and Denies wheezing [facility] Medical History Constipation DJD (degenerative joint disease) DNI (do not intubate) DNR (do not resuscitate) Essential hypertension Hallucination Heart burn Hyperlipidemia Hypotension Lewy body dementia Obesity Orthostatic hypotension Osteoarthrosis involving shoulder region POLST (Physician Orders for Life-Sustaining Treatment) Completed 08/21/2020, DNR/DNI. Small bowel obstruction Tubular adenoma of colon Unsteady gait when walking Varicose veins Surgical History Arthroplasty of knee 1986 Arthroscopy, Shoulder 1986 Cholecystectomy (07/16/12) JOSIAS Colonoscopy - IV Sedation 2008 EGD - IV Sedation 2003-Dr. Devora Meléndez shoulder (01/15/14) Balbir Leblanc, ? total shoulder prosthesis Replacement of total knee joint (10/07/14) Rika knee, Balbir Booker Transurethral prostatectomy 1986 Family History Mother No problems noted. Father , stomach ca at age 64. No problems noted. Other Brain tumor Breast cancer Rheumatic fever Stomach cancer TIA (transient ischemic attack) Social History (Updated 05/13/21 @ 22:42 by Sterling Rod) Smoking/Tobacco Use Status: Former Tobacco Use Smokeless tobacco user: other Smoking risk assessment performed?: Yes Alcohol Intake: never Drug use: Never Substance use type: does not use Household members: spouse Housing: house Number of Children: 3 Communication Needs: None Pets and animals: No Current gender identity: male What is your relationship status?: Panel score (0-1 are the most socially isolated patients): 1 What type of physical activity do you participate in: none Seatbelt use: always Drive intox or ride w/intox driver education road instructor: No Working smoke detector in home: Yes Fire extinguisher in home: No Carbon monox detector in home: Yes Do you feel safe at home: Yes Do you feel safe in your relationship?: Yes Additional Social history: Lives with Chasity Santa Allergies and Home Medications Allergies Allergy/AdvReac Type Severity Reaction Status Date / Time No Known Drug Allergies Allergy Verified 05/13/21 18:04 Home Medications Medication Instructions Recorded Confirmed Type omeprazole 20 mg PO DAILY #90 tab-cap 12/26/12 05/13/21 History multivitamin [Daily Multi-Vitamin] 1 ea PO DAILY tab 12/06/16 05/13/21 History docusate sodium [Colace] 300 mg PO HS tab-cap 01/30/17 05/13/21 History Probiotic 1 ea PO DAILY cap 03/20/17 05/13/21 History mecobalamin (vitamin B12) 1,000 1,000 mcg PO DAILY 12/22/20 05/13/21 History mcg chewable tablet pravastatin 10 mg tablet 10 mg PO QHS #1 tab 03/12/21 05/13/21 Rx Exam Narrative Exam Narrative: GEN: Alert and oriented to self and hospital but not town, season but not year. Pleasant and cooperative, but unable to give linear history. No acute distress at rest. Sits up on his own. HEENT: Head atraumatic. Conjunctiva clear, no icterus. Eyelids mildly red with yellowish discharge. PEERL, EOMI. no rhinorrhea. MMM, OP benign. Neck is supple with no masses or lymphadenopathy, trachea midline LUNGS: CTAB with normal effort CV: RRR with no murmurs, gallops, or rubs. ABD: +BS, soft, NT/ND EXT: no cyanosis, clubbing. Trace edema just at ankles mckenna MSK: No joint redness or swelling. Not tender with palpation to feet. NEURO: CN 2-12 grossly intact. Normal movement of 4 extremities. Increased tone with initial passive movement. No tremor. Normal speech and coordination SKIN: No rashs or open wounds. PSYCH: normal mood and affect Results Labs Result diagrams: 05/13/21 18:17 05/13/21 18:17 Labs: Laboratory Results - last 24 hr 05/13/21 05/13/21 05/13/21 18:17 18:17 18:30 WBC 6.29 RBC 4.68 Hgb 14.6 Hct 44.6 MCV 95.3 H MCH 31.2 MCHC 32.7 RDW 12.5 Plt Count 162 MPV 10.3 Immature Gran % 0.2 Neutrophils % 66.4 Lymphocytes % 22.1 Monocytes % 8.1 Eosinophils % 2.9 Basophils % 0.3 Nucleated RBC % 0 Absolute Neutrophils 4.18 Absolute Lymphocytes 1.39 Absolute Monocytes 0.51 Absolute Eosinophils 0.18 Absolute Basophils 0.02 Sodium 143 Potassium 3.9 Chloride 109 H Carbon Dioxide 27.6 Anion Gap 6.4 BUN 18 Creatinine 1.5 H Estimated GFR/1.73 m2 44.59 Glucose 76 Calcium 8.7 Total Bilirubin 0.3 AST 10 L ALT 19 Alkaline Phosphatase 74 Total Protein 7.1 Albumin 3.7 Urine Color Yellow Urine Clarity Clear Urine pH 5.5 Ur Specific [place] >= 1.030 H Urine Protein Negative Urine Ketones Trace H Urine Blood Negative Urine Nitrite Negative Urine Bilirubin Negative Urine Urobilinogen 0.2 Ur Leukocyte Esterase Negative Urine Glucose Negative COVID-19 Source SARS-CoV-2 (PCR) 05/13/21 20:35 WBC RBC Hgb Hct MCV MCH MCHC RDW Plt Count MPV Immature Gran % Neutrophils % Lymphocytes % Monocytes % Eosinophils % Basophils % Nucleated RBC % Absolute Neutrophils Absolute Lymphocytes Absolute Monocytes Absolute Eosinophils Absolute Basophils Sodium Potassium Chloride Carbon Dioxide Anion Gap BUN Creatinine Estimated GFR/1.73 m2 Glucose Calcium Total Bilirubin AST ALT Alkaline Phosphatase Total Protein Albumin Urine Color Urine Clarity Urine pH Ur Specific [place] Urine Protein Urine Ketones Urine Blood Urine Nitrite Urine Bilirubin Urine Urobilinogen Ur Leukocyte Esterase Urine Glucose COVID-19 Source Nasal/Nares SARS-CoV-2 (PCR) Negative Last Vital Signs Temp 37.1 C 05/13/21 17:55 Pulse 69 05/13/21 21:31 Resp 19 05/13/21 21:40 BP 147/84 H 05/13/21 21:31 Pulse Ox 95 05/13/21 21:01
[2021-05-13] MEDS: Enoxaparin 40 MG/0.4 ML SYR SC (23:01)
[2021-05-14 03:35] VITALS: BP 164/92; PULSE 90; RESP 22
[2021-05-14 07:25] VITALS: BP 184/98; PULSE 68; RESP 18; TEMP 36.1; O2SAT 96
[2021-05-14 07:30] LABS: TSH (W/Ref FT4) 0.37 uIU/mL (0.36-3.74)
[2021-05-14 07:35] LABS: Vitamin B12 577 pg/mL (193-986)
[2021-05-14] MEDS: Multivitamin TAB 1 TAB PO (08:54)
[2021-05-14] MEDS: Omeprazole 20 MG CAPCR PO (08:54)
[2021-05-14] MEDS: Cyanocobalamin 500 MCG TAB 1000 MCG PO (08:54)
[2021-05-14] MEDS: hydrALAZINE 25 MG TAB PO (08:54)
--- NOTE | 2021-05-14 09:07 | INITIAL_ITS ---
- If Service Date Differs Date of service: 05/14/21 Time of Service: 09:07 Care Management Initial Assess REASON FOR HOSPITALIZATION:: ambulatory dysfunction, generalized weakness, frequent falls PAST MEDICAL HISTORY/PAST SURGICAL HISTORY:: Medical History. Constipation. DJD (degenerative joint disease). DNI (do not intubate). DNR (do not resuscitate). Essential hypertension. Hallucination. Heart burn. Hyperlipidemia. Hypotension. Lewy body dementia. Obesity. Orthostatic hypotension. Osteoarthrosis involving shoulder region. POLST (Physician Orders for Life-Sustaining Treatment). Completed 08/21/2020, DNR/DNI. Small bowel obstruction. Tubular adenoma of colon. Unsteady gait when walking. Varicose veins. Surgical History. Arthroplasty of knee. 1986. Arthroscopy, Shoulder. 1986. Cholecystectomy (07/16/12). JOSIAS. Colonoscopy - IV Sedation. 2008. EGD - IV Sedation. 2003-Dr. Lozoya. Rika shoulder (01/15/14). Balbir Leblanc, ? total shoulder prosthesis. Replacement of total knee joint (10/07/14). Rika knee, Balbir Booker. Transurethral prostatectomy. 1986 PREVIOUS FUNCTIONAL STATUS/SOCIAL/FAMILY SUPPORTS:: Hitesh lives in [place] with his , Chasity. They have three children. He uses a walker to ambulate, and is followed by Palliative care. His assists him with ADL's. CURRENT FUNCTIONAL STATUS:: Hitesh was sitting up in his chair when CM met with him. He reported that he worked with PT today, and felt that he did well. Per PT, he may be able to return home with 24/7 supervision as well as services vs SNF. CM talked to his , Chasity, on the phone, and then later in his room. Chasity stated that she would prefer to take Hitesh home, as long as he is stable, and if she can have services in place to continue PT at home. CM discussed the plan with the provider, who stated that he will remain at [facility] to work with PT, and to attempt to determine what may be causing his decline. On Monday, he will be re evaluated, and at that point he may return home vs SNF. CM will continue to follow. ADVANCE DIRECTIVES:: [employer] on file, as well as DPOA form. Chasity, , listed as agent and DPOA. Has patient been provided with info about the portal/API?: Yes Did the patient sign up for the portal?: No CODE STATUS:: DNR/DNI INSURANCE COVERAGE / FINANCIAL ISSUES:: SUSIE/ NGUYỄN/ Crys [employer] CURRENT HOME/COMMUNITY SERVICES/EQUIPMENT:: Hitesh has a FWW that he uses regularly. PRIMARY CARE PHYSICIAN:: Derek Leal POTENTIAL DISCHARGE NEEDS:: HH services vs SNF placement, follow up appointments. PATIENT/FAMILY EDUCATION NEEDS:: Review discharge plan including activity level and medications, discussion of self care needs and goals of care. ANTICIPATED BARRIERS TO DISCHARGE:: Continued evaluations needed to determine if Hitesh would be safe to return home. If not, he may require placement. TRANSPORTATION:: private vehicle by family vs facility w/c van. PLAN:: Hitesh is being evaluated by PT today to determine if he will be safe to return home. If so, he will return home with new HH services. If not, he may require placement. CM will discuss this with his , Chasity, who is his DPOA. He will follow up with Palliative care, his PCP and discharge plan of care. CM will continue to follow.
--- NOTE | 2021-05-14 09:15 | PT.INIE ---
PT Notes Visit Reasons: Ambulatory Dysfunction,Generalized Weakness,Falls Physical Therapy Inpatient Initial Evaluation Date: 05/14/2021 Referring Doctor: Sterling Cintron MD PT Orders: PT CONSULT: Fall safety assessment. Eval for assistive device. Safety consult for DC. Precautions: Fall. Standard. Activity as tolerated. Patient Profile/Admitting Diagnosis: Hitesh is an 85-year-old male with past we body dementia who presented to the ED on 05/14/2021 due to frequent falls, generalized weakness, and increased inability to thrive at home. Patient is diagnosed with ambulatory dysfunction, generalized weakness, chronic kidney disease, hyperlipidemia, and essential hypertension. PMHX: Medical History Constipation DJD (degenerative joint disease) DNI (do not intubate) DNR (do not resuscitate) Essential hypertension Hallucination Heart burn Hyperlipidemia Hypotension Lewy body dementia Obesity Orthostatic hypotension Osteoarthrosis involving shoulder region POLST (Physician Orders for Life-Sustaining Treatment) Completed 08/21/2020, DNR/DNI. Small bowel obstruction Tubular adenoma of colon Unsteady gait when walking Varicose veins Surgical History Arthroplasty of knee 1987 Arthroscopy, Shoulder 1987 Cholecystectomy (07/16/12) JOSIAS Colonoscopy - IV Sedation 2008 EGD - IV Sedation 2003-Dr. Devora Meléndez shoulder (01/15/14) Balbir Leblanc, ? total shoulder prosthesis Replacement of total knee joint (10/07/14) Rika knee, Balbir Booker Transurethral prostatectomy 1986 Social History/Home Situation: Lives with in a private home. Unable to fully extract reliable information from patient at this time due to impaired cognition. Equipment Owned/DME: Unknown Subjective: Pleasantly confused. Hitesh states that his knees tend to give way causing him to fall. When asked if he gets dizzy right before he falls, he states that he does. Today he denies dizziness, pain in B knees, and pain. Objective: General Observation: Supine in bed. IV access in R UE. Mental Status: Alert. Able to pay attention briefly but gets easily distracted and requires redirection and repetition of simple commands to initiate and complete tasks. Pain: Denies Vital Signs: After walking about 100 feet, BP 127/87 mmHg, 96% on room air, and HR 85 bpm. ROM: Right Upper Extremity: Shoulder Flexion WFL. Shoulder abduction WFL. Elbow flexion WFL. Wrist flexion WFL. Functional opening and closing of hand WFL. Left Upper Extremity: Shoulder Flexion WFL. Shoulder abduction WFL. Elbow flexion WFL. Wrist flexion WFL. Functional opening and closing of hand WFL. Right Lower Extremity: Hip flexion allows about 10 degrees beyond 90 while seated at edge of bed. Hip abduction WFL. Knee flexion WFL 10 degrees to 90 degrees. Knee extension -10 degrees. Ankle dorsiflexion to neutral only. Ankle plantarflexion 20 degrees from neutral. Left Lower Extremity: Hip flexion allows about 20 degrees beyond 90 while seated at edge of bed. Hip abduction WFL. Knee flexion -20degrees to 90 degrees. Ankle dorsiflexion to neutral only. Ankle plantarflexion 20 degrees from neutral. Strength: Right Upper Extremity: Shoulder flexors 4/5. Shoulder abductors 4/5. Elbow flexors 4/5. Elbow extensors 4/5. Metal Model Builder strong. Left Upper Extremity: Shoulder flexors 4/5. Shoulder abductors 4/5. Elbow flexors 4/5. Elbow extensors 4/5. Metal Model Builder strong. Right Lower Extremity: Hip flexors 3-/5. Hip abductors 4-/5. Knee flexors 4/5. Knee extensors 3-/5. Ankle dorsiflexors 3-/5. Ankle plantarflexors 3-/5. Left Lower Extremity: Hip flexors 3-/5. Hip abductors 4-/5. Knee flexors 4/5. Knee extensors 3-/5. Ankle dorsiflexors 3-/5. Ankle plantarflexors 3-/5. Bed Mobility/Transfers: Supine to sit SBA with HOB 30 degrees Sit to stand with contact guard assist with moderate cues for safe/correct technique Stand to sit with stand by assist with with moderate cues for safe/correct technique Bed to reclining chair stand by assist with with moderate cues for safe/correct technique Gait: Instructed patient with level surface ambulation of 250 feet requiring contact guard assist, needed one seated rest. Kait decreased. Step height decreased. Step length decreased. No LOB. No pain. No dizziness. Required moderate to maximal verbal cues for walker management and sit<>stand from wheelchair. Mild SOB. Balance: Static Sitting: Normal Dynamic Sitting: Normal Static Standing: Fair Dynamic Standing: Fair Special Tests: Mobility Limitations Standardized Measure [facility] AM-PAC 6 clicks Basic Mobility Inpatient Short Form: Raw Score: 21 CMS Score: 29% deficit Informed Consent/Education: Patient's expressed agreement with working with patient to improve mobility level on admission. Assessment: Patient only required contact guard assist for all mobility ADL performance but required extensive cueing to navigate through an unfamiliar environment with all unfamiliar people for the first time. Discharge destination may highly depend on caregiver availability as patient will require 24/7 supervision due to impaired safety awareness. Although physically patient did not require assistance and issues of B knee pain/instability did not arise at time of evaluation, continued observation may be needed to determine any change in behavior and level of dependence throughout the day. Patient presents with clinical signs and symptoms consistent with current/admitting diagnoses that have resulted to mobility limitations, gait instability, generalized weakness, and overall ADL decline as demonstrated by the following impairment level findings: 1. Decreased strength to B LE major muscle groups 2. Impaired standing balance 3. Impaired activity tolerance 4. Limitation of joint range of motion in R hip 5. Shortness of breath 6. Impaired safety awareness Impairments are contributing to the following functional limitations: 1. Decline in bed mobility skills 2. Decline in transfer skills 3. Difficulty with ambulation without assistive device and physical assistance 4. Increased completion time for mobility ADL performance 5. Increased risk for falls Patient is assessed as a 53745 complexity based on the following: History: 85-year-old male with past medical history as indicated above Examination: Demonstrable impairment in strength, balance, and mobility level with underlying impairments and functional limitations as exhibited above as well as deficit score of 29% utilizing the [facility] Mobility Inpatient Short Form Presentation: Evolving Decision Makin complexity Goals: Goals X1 week 1. Supine-Sit independent 2. Sit-Supine independent 3. Sit-Stand independent 4. Stand-Sit independent with FWW 5. Bed-Chair independent with FWW 6. Chair-Bed independent with FWW 7. Supervision gait on level surface with use of FWW for at least 250 feet without report of pain nor dyspnea 8. Supervision stair negotiation while holding onto [] rails for at least [] steps without report of pain nor dyspnea 9. Supervision with home exercise program 10. Good static and dynamic standing balance/tolerance Plan of Care/Treatment Plan: 1-2x/day, 7 days/week x 1 week. Plan of care has been reviewed with the PORTAL DEVELOPER providing the service under Physical Therapy direction. Initiate Physical Therapy intervention for pain management as needed, strengthening, bed mobility, transfers, gait, stairs, balance training, and use of assistive device. DISCHARGE RECOMMENDATIONS: If 24/7 supervision is available at home and is able to provide needed physical assistance in instances of increased confusion as well as increased dependence, person may thrive at home. Otherwise, SNF placement is recommended. TREATMENT CODE/TIME: 13303 x 20 minutes, 76016 x 25 minutes beginning at 9:15 AM. Thank you for the opportunity to participate in the care of this patient. Josiane Benson PT, DPT, CLT [facility] [place], [place]
[2021-05-14] MEDS: amLODIPine 5 MG TAB PO (09:59)
[2021-05-14 11:25] VITALS: BP 130/83; PULSE 85; RESP 19; TEMP 36.8; O2SAT 95
--- NOTE | 2021-05-14 15:24 | PT.INTREAT ---
Date of service: 05/14/21 Time of Service: 13:05 PT Notes Visit Reasons: Ambulatory Dysfunction,Generalized Weakness,Falls Inpatient Physical Therapy Treatment Note [facility] Date: 05/14/2021 PRECAUTIONS: Fall SUBJECTIVE: Hitesh is very pleasant and agrees to participating in PT. His is present, and states that he is ambulating and transferring better than he has been at home. OBJECTIVE: PAIN: No c/o pain BED MOBILITY/TRANSFERS Supine-sit: I with HOB flat Sit-supine: I with HOB flat Sit-stand: SBA Stand-sit: SBA GAIT Assistive Device: FWW Weight bearing: Full Assist: SBA Distance: 250' THEREX: Patient was instructed in a standing UE and LE strengthening program, as per flow sheet. He demonstrates good balance with all standing activities, requiring SBA. ASSESSMENT: Patient tolerated session without complaint. He was able to tolerate the addition of a ther ex program, completed in a standing position, demonstrating good balance. PLAN: Continue with global strengthening and conditioning for continued progression toward baseline level of function. TREATMENT CODE/TIME: 30 minutes; 77065, 10112 (13:05)
--- NOTE | 2021-05-14 17:48 | PGE_ITS ---
Date of Service Date of service: 05/14/21 Time of Service: 17:48 Assessment and Plan Assessment and plan (1) Ambulatory dysfunction: Start date: 05/14/21 Start time: 17:53 Status: Acute Assessment and plan: This represents an acute worsening of a chronic associated with general weakness. This may represent a progression of his Lewy Body dementia. PT evaluation and palliative care consult. (2) Generalized weakness: Start date: 05/14/21 Start time: 17:53 Status: Acute Assessment and plan: appears to be deconditioned, but it is unclear if there are additional causes for his weakness. Labs not revealing. No UTI, but high SG consistent with poor oral intake. SARS CoV negative. Macrocytosis with history of low normal B12, will repeat levels. TSH also slightly low last year, will repeat. not consistent with CVA or other new intracranial pathology, so new imaging indicated (3) Chronic kidney disease: Start date: 05/14/21 Start time: 17:55 Status: Chronic Assessment and plan: Cr is at his baseline. Monitor i/o. (4) Lewy body dementia: Start date: 05/14/21 Start time: 17:55 Status: Acute Assessment and plan: Appears to be gradually progressing. Palliative care consult, they have been following the case. Qualifiers: Dementia behavioral disturbance: without behavioral disturbance Qualified Code(s): G31.83 - Dementia with Lewy bodies; F02.80 - Dementia in ot her diseases classified elsewhere without behavioral disturbance (5) Hyperlipidemia: Start date: 05/14/21 Start time: 17:56 Status: Acute Assessment and plan: Pravastatin on his list, though PCP stopped this earlier this year. I don't see rationale given uncertain benefit of statins for primary prevention at his age. Statins can cause muscle pain, I will hold this. (6) Essential hypertension: Start date: 05/14/21 Start time: 17:56 Status: Acute Assessment and plan: BP high, but has been low in the past so not taking antihypertensives. He appears to have some autonomic dysfunction related to his Lewy body dementia. Monitor off meds, get orthostatic vitals when he is up in the morning. (7) DVT prophylaxis: Start date: 05/14/21 Start time: 17:56 Status: Acute Assessment and plan: LMWH (8) Discharge planning issues: Start date: 05/14/21 Start time: 17:56 Status: Acute Assessment and plan: Patient may need SNF for rehabilitation if not deemed to be safe after PT assessment. He is DNR/DNI, currently stable on medical floor. discussed with Dr Mays Subjective Subjective Patient reports: no new complaints Interval history since last seen: Sitting up in chair no complaints. Not confused at time of evaluation. Plan to keep through weekend then possibly discharge home with . Exam Narrative Exam Narrative: GEN: AAOx3 was able to conversate during evaluation and have no issue with confusion at the time HEENT: Head atraumatic. Conjunctiva clear, no icterus. Eyelids mildly red with yellowish discharge. PEERL, EOMI. no rhinorrhea. MMM, OP benign. Neck is supple with no masses or lymphadenopathy, trachea midline LUNGS: CTAB with normal effort CV: RRR with no murmurs, gallops, or rubs. ABD: +BS, soft, NT/ND EXT: no cyanosis, clubbing. Trace edema just at ankles mckenna MSK: No joint redness or swelling. Not tender with palpation to feet. NEURO: CN 2-12 grossly intact. Normal movement of 4 extremities. Increased tone with initial passive movement. No tremor. Normal speech and coordination SKIN: No rashs or open wounds. PSYCH: normal mood and affect Objective Last Vital Signs Temp 36.8 C 05/14/21 11:25 Pulse 85 05/14/21 11:25 Resp 19 05/14/21 11:25 BP 130/83 05/14/21 11:25 Pulse Ox 95 05/14/21 11:25 Laboratory Results - last 24 hr 05/13/21 05/13/21 05/13/21 18:17 18:17 18:30 WBC 6.29 RBC 4.68 Hgb 14.6 Hct 44.6 MCV 95.3 H MCH 31.2 MCHC 32.7 RDW 12.5 Plt Count 162 MPV 10.3 Immature Gran % 0.2 Neutrophils % 66.4 Lymphocytes % 22.1 Monocytes % 8.1 Eosinophils % 2.9 Basophils % 0.3 Nucleated RBC % 0 Absolute Neutrophils 4.18 Absolute Lymphocytes 1.39 Absolute Monocytes 0.51 Absolute Eosinophils 0.18 Absolute Basophils 0.02 Sodium 143 Potassium 3.9 Chloride 109 H Carbon Dioxide 27.6 Anion Gap 6.4 BUN 18 Creatinine 1.5 H Estimated GFR/1.73 m2 44.59 Glucose 76 Calcium 8.7 Total Bilirubin 0.3 AST 10 L ALT 19 Alkaline Phosphatase 74 Total Protein 7.1 Albumin 3.7 Vitamin B12 TSH Urine Color Yellow Urine Clarity Clear Urine pH 5.5 Ur Specific [place] >= 1.030 H Urine Protein Negative Urine Ketones Trace H Urine Blood Negative Urine Nitrite Negative Urine Bilirubin Negative Urine Urobilinogen 0.2 Ur Leukocyte Esterase Negative Urine Glucose Negative COVID-19 Source SARS-CoV-2 (PCR) 05/13/21 05/14/21 05/14/21 20:35 06:12 06:12 WBC RBC Hgb Hct MCV MCH MCHC RDW Plt Count MPV Immature Gran % Neutrophils % Lymphocytes % Monocytes % Eosinophils % Basophils % Nucleated RBC % Absolute Neutrophils Absolute Lymphocytes Absolute Monocytes Absolute Eosinophils Absolute Basophils Sodium Potassium Chloride Carbon Dioxide Anion Gap BUN Creatinine Estimated GFR/1.73 m2 Glucose Calcium Total Bilirubin AST ALT Alkaline Phosphatase Total Protein Albumin Vitamin B12 577 TSH 0.37 Urine Color Urine Clarity Urine pH Ur Specific [place] Urine Protein Urine Ketones Urine Blood Urine Nitrite Urine Bilirubin Urine Urobilinogen Ur Leukocyte Esterase Urine Glucose COVID-19 Source Nasal/Nares SARS-CoV-2 (PCR) Negative
[2021-05-14] MEDS: Enoxaparin 40 MG/0.4 ML SYR SC (22:14)
[2021-05-14] MEDS: Docusate Sodium 100 MG CAP 300 MG PO (22:15)
[2021-05-14] MEDS: QUEtiapine 25 MG TAB 50 MG PO (22:16)
[2021-05-14 23:40] VITALS: BP 161/88; PULSE 62; RESP 18; TEMP 36.3; O2SAT 96
[2021-05-15 04:15] VITALS: BP 132/86; PULSE 76; RESP 20; TEMP 36.2; O2SAT 98
[2021-05-15 07:15] VITALS: BP 132/81; PULSE 78; RESP 16; TEMP 36.2; O2SAT 98
[2021-05-15] MEDS: amLODIPine 5 MG TAB PO (07:52)
[2021-05-15] MEDS: Omeprazole 20 MG CAPCR PO (07:52)
[2021-05-15] MEDS: Cyanocobalamin 500 MCG TAB 1000 MCG PO (07:52)
[2021-05-15] MEDS: Multivitamin TAB 1 TAB PO (07:52)
--- NOTE | 2021-05-15 10:49 | PT.INTREAT ---
PT Notes Visit Reasons: Ambulatory Dysfunction,Generalized Weakness,Falls 05/15/2021 SUBJECTIVE: Vinod stating he has some tenderness to the low back and tailbone. He is fearful of falling. He notes when he is in standing position that his legs feel weak and does not want to walk. OBJECTIVE: TRANSFERS Sit to stand: Min A Stand to sit: CGA GAIT Stood in place x 30 seconds. Pt notes his legs feel weak and he refuses to walk. THEREX: Performs seated UE/LE strengthening exercises with verbal and visual cues required. See flow sheet. ASSESSMENT: Pt is confused this AM. Able to follow commands to complete exercises and utilize demonstration with improvement in exercise performance. He requires more assist to stand up from low chair today which may of made him nervous to ambulate. Will assess again tomorrow and progress with ambulation as he is able to tolerate. Plan: Continue per POC. Treatment time: 23 minutes [id number] Deyanira Sandoval, JESUS
[2021-05-15] MEDS: QUEtiapine 25 MG TAB PO ×2 (12:45→19:39)
[2021-05-15] MEDS: Senna TAB 1 TAB PO (12:45)
--- NOTE | 2021-05-15 15:01 | PGE_ITS ---
Date of Service Date of service: 05/15/21 Time of Service: 15:01 Assessment and Plan Assessment and plan (1) Lewy body dementia: Start date: 05/15/21 Start time: 15:10 Status: Acute Assessment and plan: Appears to be gradually progressing. Palliative care consult, they have been following the case. He is having agitation and combativeness with hallucinations when sun downing. Placed on seroquel with miratzapem Qualifiers: Dementia behavioral disturbance: without behavioral disturbance Qualified Code(s): G31.83 - Dementia with Lewy bodies; F02.80 - Dementia in o ther diseases classified elsewhere without behavioral disturbance (2) Hyperlipidemia: Start date: 05/15/21 Start time: 15:11 Status: Acute Assessment and plan: on hold at this time due to possible muscle cramps (3) Ambulatory dysfunction: Start date: 05/15/21 Start time: 15:08 Status: Acute Assessment and plan: continue to work with PT Ambulate with assistance. (4) Generalized weakness: Start date: 05/15/21 Start time: 15:09 Status: Acute Assessment and plan: appears to be deconditioned, but it is unclear if there are additional causes for his weakness. Labs not revealing. No UTI, but high SG consistent with poor oral intake. SARS CoV negative. B12 normal at 577 TSH 0.37 (5) Chronic kidney disease: Start date: 05/15/21 Start time: 15:10 Status: Chronic Assessment and plan: Cr is at his baseline. Monitor i/o. (6) Essential hypertension: Start date: 05/15/21 Start time: 15:14 Status: Acute Assessment and plan: BP high, but has been low in the past so not taking antihypertensives. He appears to have some autonomic dysfunction related to his Lewy body dementia. Monitor off meds, get orthostatic vitals when he is up in the morning. (7) DVT prophylaxis: Start date: 05/15/21 Start time: 15:14 Status: Acute Assessment and plan: LMWH (8) Discharge planning issues: Start date: 05/15/21 Start time: 15:14 Status: Acute Assessment and plan: Patient may need SNF for rehabilitation if not deemed to be safe after PT assessment. He is DNR/DNI, currently stable on medical floor. discussed with Dr Mays Subjective Subjective Patient reports: other Interval history since last seen: Patient confused thought was sleeping in the corner of the room in the chair no one was there. Possible discharge home with on Monday if he is able to be stable with mentation and combativness. Will add seroquel and mertazipem to regimen Exam Const General: cooperative, comfortable and no acute distress Nutritional Appearance: obese Orientation: alert, awake and oriented to person Eyes Eyelids: eyelids normal Pupils: PERRL EOM: EOM intact bilaterally Neck Neck: normal visual inspection and no JVD Lymphatic: no lymphadenopathy noted Resp Effort & Inspection: normal respiratory effort Auscultation: clear to auscultation bilaterally Cardio Jugular venous pressure: no JVD Rhythm: regular rhythm Heart Sounds: S1 normal GI Auscultation: normal bowel sounds General: No CVA tenderness and deferred Skin General skin exam: no rashes or lesions noted Neuro General: patient alert, patient awake and oriented Patient Orientation: Person and Confused Cognition: abnormal cognition Speech: speech normal Gait: normal gait Extrem General: normal to inspection, full ROM and no clubbing, cyanosis or edema Objective Last Vital Signs Temp 36.2 C L 05/15/21 07:15 Pulse 78 05/15/21 07:15 Resp 16 05/15/21 07:15 BP 132/81 05/15/21 07:15 Pulse Ox 98 05/15/21 07:15
[2021-05-15 15:13] VITALS: BP 102/66; PULSE 86; RESP 19; TEMP 36.4; O2SAT 96
[2021-05-15] MEDS: QUEtiapine 25 MG TAB 50 MG PO (21:45)
[2021-05-15] MEDS: Enoxaparin 40 MG/0.4 ML SYR SC (21:46)
[2021-05-15] MEDS: Docusate Sodium 100 MG CAP 300 MG PO (21:46)
[2021-05-15 22:43] VITALS: BP 138/87; PULSE 82; RESP 18; TEMP 36.6; O2SAT 96
[2021-05-16 07:05] VITALS: BP 141/82; PULSE 73; RESP 18; TEMP 36.3; O2SAT 97
[2021-05-16 07:05] LABS: HGB 14.7 g/dL (13.5-17.5); MCH 30.8 pg (27.0-33.0); MCHC 32.7 % (32.0-36.0); MCV 94.3 fL (80-95); MPV 10.9 fL (8.0-11.0); Platelet Count 145 10^3/uL (130-400); RBC 4.77 10^6/uL (4.36-5.78); RDW 12.8 % (11.8-14.1); RDW-SD 44.2 fL; WBC 5.53 10^3/uL (4.4-10.8)
[2021-05-16] MEDS: amLODIPine 5 MG TAB PO (10:08)
[2021-05-16] MEDS: QUEtiapine 25 MG TAB PO ×2 (10:09→19:40)
--- NOTE | 2021-05-16 11:58 | PT.INTREAT ---
PT Notes Visit Reasons: Ambulatory Dysfunction,Generalized Weakness,Falls 05/16/2021 SUBJECTIVE: Pt is standing in his room with nursing when I arrive. He is stating he needs to talk to someone. Most of his information given does not make sense. OBJECTIVE: TRANSFERS Stand to sit: Pt refuses to sit down after walking; requires mod A to get him to sit down. GAIT: Device: FWW Weight bearing: Full Assist: SBA Distance: 100; Deviation: Lets go of walker often, needs steering help to navigate his turns. ASSESSMENT: Very confused this morning. He is not oriented to place or time. Deferred therex today due to increased confusion. PLAN: Continue per POC. Treatment time: 15' [id number] Deyanira Sandoval PTA Clinic location: [facility] [place], [place]
--- NOTE | 2021-05-16 14:59 | PGE_ITS ---
Date of Service Date of service: 05/16/21 Time of Service: 10:00 Assessment and Plan Assessment and plan (1) Lewy body dementia: Start date: 05/16/21 Start time: 10:00 Status: Acute Assessment and plan: Appears to be gradually progressing. Palliative care consult, they have been following the case. He is having agitation and combativeness with hallucinations when sun downing. Placed on seroquel with miratzapem this did help him last night he was better with agitation, per nursing he is o nly really agitated when he has to pee. They don't feel his will be able to care for him at home. He would be appropriate for Michelle to manage this. Qualifiers: Dementia behavioral disturbance: without behavioral disturbance Qualified Code(s): G31.83 - Dementia with Lewy bodies; F02.80 - Dementia in other diseases classified elsewhere without behavioral disturbance (2) Hyperlipidemia: Start date: 05/16/21 Start time: 10:00 Status: Acute Assessment and plan: on hold at this time due to possible muscle cramps (3) Ambulatory dysfunction: Start date: 05/16/21 Start time: 10:00 Status: Acute Assessment and plan: continue to work with PT Ambulate with assistance. (4) Generalized weakness: Start date: 05/16/21 Start time: 10:00 Status: Acute Assessment and plan: appears to be deconditioned, but it is unclear if there are additional causes for his weakness. Labs not revealing. No UTI, but high SG consistent with poor oral intake. SARS CoV negative. B12 normal at 577 TSH 0.37 (5) Chronic kidney disease: Start date: 05/16/21 Start time: 10:00 Status: Chronic Assessment and plan: Cr is at his baseline. Monitor i/o. (6) Essential hypertension: Start date: 05/16/21 Start time: 10:00 Status: Acute Assessment and plan: He has been more nomortensive, tends to run higher when agitated. (7) DVT prophylaxis: Start date: 05/16/21 Start time: 10:00 Status: Acute Assessment and plan: LMWH (8) Discharge planning issues: Start date: 05/16/21 Start time: 10:00 Status: Acute Assessment and plan: Patient may need SNF for rehabilitation if not deemed to be safe after PT assessment. He is DNR/DNI, currently stable on medical floor. discussed with Dr Anne Subjective Subjective Patient reports: other Interval history since last seen: Severely confused. Agitated overnight when having to pee otherwise cooperative but confused. Exam Narrative Exam Narrative: GEN: Oriented to self only Alert and awake HEENT: Head atraumatic. Conjunctiva clear, no icterus. Eyelids mildly red with yellowish discharge. PEERL, EOMI. no rhinorrhea. MMM, OP benign. Neck is supple with no masses or lymphadenopathy, trachea midline LUNGS: CTAB with normal effort CV: RRR with no murmurs, gallops, or rubs. ABD: +BS, soft, NT/ND EXT: no cyanosis, clubbing. Trace edema just at ankles mckenna MSK: No joint redness or swelling. Not tender with palpation to feet. NEURO: CN 2-12 grossly intact. Normal movement of 4 extremities. Increased tone with initial passive movement. No tremor. Normal speech and coordination SKIN: No rashs or open wounds. PSYCH: normal mood and affect Objective Last Vital Signs Temp 36.3 C L 05/16/21 07:05 Pulse 73 05/16/21 07:05 Resp 18 05/16/21 07:05 BP 141/82 H 05/16/21 07:05 Pulse Ox 97 05/16/21 07:05 Laboratory Results - last 24 hr 05/16/21 06:22 WBC 5.53 RBC 4.77 Hgb 14.7 Hct 45.0 MCV 94.3 MCH 30.8 MCHC 32.7 RDW 12.8 Plt Count 145 MPV 10.9
[2021-05-16 15:39] VITALS: BP 107/70; PULSE 79; RESP 17; TEMP 36; O2SAT 93
[2021-05-16] MEDS: Mirtazapine 15 MG TAB 7.5 MG PO (17:12)
[2021-05-16 19:45] VITALS: BP 116/75; PULSE 93; RESP 18; TEMP 37.2; O2SAT 96
[2021-05-16] MEDS: QUEtiapine 25 MG TAB 50 MG PO (22:05)
[2021-05-16] MEDS: Enoxaparin 40 MG/0.4 ML SYR SC (22:05)
[2021-05-16] MEDS: Docusate Sodium 100 MG CAP 300 MG PO (22:06)
[2021-05-17 07:54] VITALS: BP 150/92; PULSE 85; RESP 18; TEMP 36.5; O2SAT 97
--- NOTE | 2021-05-17 08:49 | NUR.NOTE ---
patient is refusing to take any medications this morning. Nursing Note:
[2021-05-17] MEDS: QUEtiapine 25 MG TAB PO (10:55)
--- NOTE | 2021-05-17 17:03 | CMDISCH_ITS ---
- If Service Date Differs Date of service: 05/17/21 Time of Service: 17:03 LACE Index Scoring Tool - Questions: Length of Stay (in days): 3 Acuity (Admit via E.D.?): Yes Comorbidities: Dementia E.D. Visits: 2 - Answers: Total Score: 11 Risk of Readmission: High Risk Care Management Discharge Reason for Hospitalization: ambulatory dysfunction, generalized weakness, frequent falls Discharge Plan: Jose will return home today with new orders for HH RN, PT, OT, PROPELLER DRIVEN AIRPLANE MECHANIC. called [facility] to inform them of his discharge today. His will drive him home via private vehicle. He will follow up with his PCP and discharge plan of care. He is happy to be going home. Patient/Family Education Needs: Review discharge instructions regarding activity levels and medications, discussion of self care needs including ask me three and goals of care. Services Needed at Discharge: Home Health Care Services (new HH RN, PT, OT, PROPELLER DRIVEN AIRPLANE MECHANIC)
--- NOTE | 2021-05-17 17:08 | W.PM.DS.N ---
Date of service: 05/17/21 Time of Service: 17:08 DS: Diagnosis Discharge Diagnosis (1) Lewy body dementia: Start date: 05/17/21 Start time: 17:09 Status: Acute Asessment and Plan: On seroquel while in patient doing well, he does requiring cuing but with cuing he is able to be redirectable. Patient would like to take him home. Mertazipime also scheduled for 5 pm for sleep. Will send home with same regimen as in the hospital Will also order HH services PT/OT/RN/JAWBONE BREAKER/COMMUNICATIONS ASSOCIATE (2) Hyperlipidemia: Start date: 05/17/21 Start time: 17:16 Status: Acute Asessment and Plan: continue current regimen (3) Ambulatory dysfunction: Start date: 05/17/21 Start time: 17:16 Status: Acute Asessment and Plan: HH services to help improve balance and strength (4) Generalized weakness: Start date: 05/17/21 Start time: 17:17 Status: Acute Asessment and Plan: as above (5) Chronic kidney disease: Start date: 05/17/21 Start time: 17:17 Status: Chronic Asessment and Plan: stable at baseline (6) Essential hypertension: Start date: 05/17/21 Start time: 17:17 Status: Acute Asessment and Plan: continue amlodipine for bp discussed with Dr. Anne Discharge Plan Disposition Patient Disposition: HOME W/HOME HEALTH SERVICE Condition: Stable Discharge Details Reason For Visit: Ambulatory Dysfunction,Generalized Weakness,Falls Admit Date/Time: 05/14/21 09:14 Admit Provider: Sterling Rod Attending Provider: Sterling Rod [facility]: 85 yo M with a history of Lewy body dementia and associated orthostatic hypotension, chronic renal insufficiency, and history of recurrent falls who was brought to the emergency department by his after falling due to his legs giving out. She was unable to help him up. The falls are the same as the have been in past years. The falls had been improving when last seen by Palliative care in February, none for 6 months, but he has fallen twice this week and his doesn't think he is safe at home. No focal weakness, but his legs give out from under him and he goes down. He hasn't hit his head or lost consciousness. No focal injuries to his body. Falling has not been associated with chest pain, palpitations, shortness of breath, or even dizziness this time. No focal joint injury, though he does say his feet hurt him when standing on them. history is limited by chronic dementia. Patient can answer yes/no questions, but cannot related linear history. Over course of treatment he did have some behavioral issues and was started on seroquel and miratzepam. These seemed helpful. His agitation decreased. He requiring cuing but was able to be redirected with cuing and at most was agitated when having to use the bathroom. He has been sleeping and has not had any combativeness or outbursts since starting medications. He was placed on amlodipine for his BP. Monitor with caution given falls and orthostatsis. F/u with PCP in 2 week. He is being discharged home to the care of his . he will be discharged home with service PT/OT/JAWBONE BREAKER/RN/COMMUNICATIONS ASSOCIATE. Home Meds and New Rx's Prescriptions: New quetiapine 25 mg Tablet 50 mg PO HS Qty: 30 RF: 0 quetiapine 25 mg Tablet 25 mg PO BID Qty: 60 RF: 0 quetiapine 25 mg Tablet 25 mg PO DAILY PRN PRN (Reason: Agitation) Qty: 20 RF: 0 sennosides [Senokot] 8.6 mg Tablet 1 tab PO BID PRN PRNQty: 20 RF: 0 amlodipine 5 mg Tablet 5 mg PO DAILY Qty: 30 RF: 0 mirtazapine 15 mg Tablet 7.5 mg PO DAILY@1700 Qty: 30 RF: 0 Continued mecobalamin (vitamin B12) 1,000 mcg tablet,chewable 1,000 mcg PO DAILY RF: 0 pravastatin 10 mg tablet 10 mg PO QHS Qty: 1 RF: 0 omeprazole 20 MG capsule,delayed release(DR/EC) 20 mg PO DAILY Qty: 90 RF: 1 multivitamin [Daily Multi-Vitamin] 1 EACH tablet 1 ea PO DAILY RF: 0 docusate sodium [Colace] 100 MG capsule 300 mg PO HS RF: 0 Probiotic 1 EACH capsule 1 ea PO DAILY RF: 0 Discharge Instructions Instructions: Dementia (ED) Additional Instructions: Take seroquel twice a day. If you need to take a third pill during the day as needed you can take one or in the evening Take mirtazapem at 5 pm daily take amlodipine to help with bp follow up with PCP in 2 weeks Activity:: Activity as Tolerated Equipment/Supplies:: No Equipment Needed Diet:: As Tolerated Discharge Orders Discharge Orders: Discharge Order (Routine); Ordered 05/17/21 Ordered By: Lydia Moulton DS: Summary Time Spent with Patient providing and/or coordinating discharge services: Less than 30 minutes Status at Discharge Functional status at discharge: independent ambulation Overall status at discharge: patient is progressing back to baseline Mental Status: other Speech and Movement: speech and movement normal Mood: other Affect: other Exam Narrative Exam Narrative: GEN: Oriented to self only Alert and awake HEENT: Head atraumatic. Conjunctiva clear, no icterus. Eyelids mildly red with yellowish discharge. PEERL, EOMI. no rhinorrhea. MMM, OP benign. Neck is supple with no masses or lymphadenopathy, trachea midline LUNGS: CTAB with normal effort CV: RRR with no murmurs, gallops, or rubs. ABD: +BS, soft, NT/ND EXT: no cyanosis, clubbing. Trace edema just at ankles mckenna MSK: No joint redness or swelling. Not tender with palpation to feet. NEURO: CN 2-12 grossly intact. Normal movement of 4 extremities. Increased tone with initial passive movement. No tremor. Normal speech and coordination SKIN: No rashs or open wounds. PSYCH: normal mood and affect Psych Mental Status: other Speech and Movement: speech and movement normal Mood: other Affect: other DS: Data Vitals/I&O Vitals and I&O: Vital Signs Temperature 36.5 C 05/17/21 07:54 Temperature Source Tympanic 05/17/21 07:54 Pulse 85 05/17/21 07:54 Pulse Rhythm Regular 05/17/21 09:25 Pulse 69 05/13/21 21:40 Respiratory Rate 18 05/17/21 07:54 Respiratory Effort Non-Labored 05/17/21 09:25 Respiratory Depth Normal 05/17/21 09:25 Respiratory Pattern Normal 05/17/21 09:25 Blood Pressure 150/92 H 05/17/21 07:54 Blood Pressure Mean 99 05/13/21 21:31 Blood Pressure Position Supine 05/13/21 17:55 Pulse Oximetry 97 05/17/21 07:54 Oxygen Delivery Method Room Air 05/17/21 07:54 Oxygen Flow Rate 0 05/17/21 07:54 Pain Level 0 05/17/21 07:54 Comment 05/14/21 07:25 Intake & Output 05/16/21 05/17/21 05/17/21 23:59 11:59 23:59 Intake Total 50 / 290 50 / 540 490 / 540 Output Total 520 / 1370 220 / 220 Balance -470 / -1080 -170 / 320 490 / 320 Intake: Oral 50 / 290 50 / 540 490 / 540 Output: Urine 520 / 1370 220 / 220 Other: Urine Color Pale Yellow Yellow Urine Appearance Clear Clear Clear Urine Odor Normal Normal Voiding Methods Urinal Toilet Urinal PFSH Medical History Constipation DJD (degenerative joint disease) DNI (do not intubate) DNR (do not resuscitate) Essential hypertension Hallucination Heart burn Hyperlipidemia Hypotension Lewy body dementia Obesity Orthostatic hypotension Osteoarthrosis involving shoulder region POLST (Physician Orders for Life-Sustaining Treatment) Completed 08/21/2020, DNR/DNI. Small bowel obstruction Tubular adenoma of colon Varicose veins Surgical History Arthroplasty of knee 1987 Arthroscopy, Shoulder 1987 Cholecystectomy (07/16/12) JOSIAS Colonoscopy - IV Sedation 2008 EGD - IV Sedation 2003-Dr. Devora Meléndez shoulder (01/15/14) Balbir Leblanc, ? total shoulder prosthesis Replacement of total knee joint (10/07/14) Rika knee, Balbir Booker Transurethral prostatectomy 1986 Family History Mother No problems noted. Father , stomach ca at age 64. No problems noted. Other Brain tumor Breast cancer Rheumatic fever Stomach cancer TIA (transient ischemic attack) Social History Smoking/Tobacco Use Status: Former Tobacco Use Smokeless tobacco user: other Smoking risk assessment performed?: Yes Alcohol Intake: never Drug use: Never Substance use type: does not use Household members: spouse Housing: house Number of Children: 3 Communication Needs: None Pets and animals: No Current gender identity: male What is your relationship status?: Panel score (0-1 are the most socially isolated patients): 1 What type of physical activity do you participate in: none Seatbelt use: always Drive intox or ride w/intox seasonal delivery driver: No Working smoke detector in home: Yes Fire extinguisher in home: No Carbon monox detector in home: Yes Do you feel safe at home: Yes Do you feel safe in your relationship?: Yes Additional Social history: Lives with Chasity
--- NOTE | 2021-05-17 17:38 | PDOC.HHF2F_ITS ---
Home Health Certification Home Health Certification: 1. Encounter Date and Reason I certify that Jose Raines was seen by Lydia Moulton on 05/17/21 and that I had a [id number] encounter with this patient that meets the physician face to face encounter requirements. 2. Clinical Findings Supporting Skilled Need and Homebound Status I certify that home health services are medically necessary, include either intermittent [place] [facility] and/or physical/speech therapy, and that this patient is homebound in that absences from the home require considerable and taxing effort and are infrequent or of short duration, or are attributable to the need to receive medical care. [X] (a) Attached documentation from encounter provides clinical findings supporting skilled need and homebound status (including what assistance patient requires to leave the home). The encounter with the patient was in whole, or in part, for the following medical condition, which is the primary reason for home health care: Ambulatory Dysfunction,Generalized Weakness,Falls Mcc: Patient would benefit from nursing and RIG SUPERVISOR services for bp checks, medication administration and adls Physical Therapy: Patient would benefit from PT/OT for strength and mobility improvement along with gait improvement. CONSUMER SAFETY OFFICER Patient would benefit from this service to help with connections in the community Homebound: Unable to leave home without assistance 3. Certification and Authentication I certify that I composed the above information based on my clinical judgement relating to this patient's medical condition and, if applicable, clinical findings communicated to me by the NPP or inpatient physician who performed the Home Health Referral. All further orders will be obtained through ___Derek Leal--------community Based Physician - PCP)
--- NOTE | 2021-05-17 19:00 | INDS_ITS ---
Date of service: 05/17/21 PT Notes Visit Reasons: Ambulatory Dysfunction,Generalized Weakness,Falls Physical Therapy Inpatient Discharge Summary Date: 05/17/2021 Dates of Service: 05/14/2021 through 05/16/2021 This is a clinical summary of care provided for the duration of dates listed above. No charge was made in the completion of this documentation. Referring Doctor: Sterling Cintron MD PT Orders: PT CONSULT: Fall safety assessment. Eval for assistive device. Safety consult for DC. Precautions: Fall. Standard. Activity as tolerated. Patient Profile/Admitting Diagnosis: Hitesh is an 85-year-old male with past we body dementia who presented to the ED on 05/14/2021 due to frequent falls, generalized weakness, and increased inability to thrive at home. Patient is diagnosed with ambulatory dysfunction, generalized weakness, chronic kidney disease, hyperlipidemia, and essential hypertension. PMHX: Medical History Constipation DJD (degenerative joint disease) DNI (do not intubate) DNR (do not resuscitate) Essential hypertension Hallucination Heart burn Hyperlipidemia Hypotension Lewy body dementia Obesity Orthostatic hypotension Osteoarthrosis involving shoulder region POLST (Physician Orders for Life-Sustaining Treatment) Completed 08/21/2020, DNR/DNI. Small bowel obstruction Tubular adenoma of colon Unsteady gait when walking Varicose veins Surgical History Arthroplasty of knee 1986 Arthroscopy, Shoulder 1986 Cholecystectomy (07/16/12) JOSIAS Colonoscopy - IV Sedation 2008 EGD - IV Sedation 2003-Dr. Devora Meléndez shoulder (01/15/14) Balbir Leblanc, ? total shoulder prosthesis Replacement of total knee joint (10/07/14) Rika knee, Balbir Booker Transurethral prostatectomy 1986 Social History/Home Situation: Lives with in a private home. Unable to fully extract reliable information from patient at this time due to impaired cognition. Equipment Owned/DME: Unknown Subjective: NT. See most recent ZONING ENGINEER notes. Objective: General Observation: NT. See most recent ZONING ENGINEER notes. Mental Status: NT. See most recent ZONING ENGINEER notes. Pain: NT. See most recent ZONING ENGINEER notes. Vital Signs: NT. See most recent ZONING ENGINEER notes. ROM: Right Upper Extremity: Shoulder Flexion WFL. Shoulder abduction WFL. Elbow flexion WFL. Wrist flexion WFL. Functional opening and closing of hand WFL. Left Upper Extremity: Shoulder Flexion WFL. Shoulder abduction WFL. Elbow flexion WFL. Wrist flexion WFL. Functional opening and closing of hand WFL. Right Lower Extremity: Hip flexion allows about 10 degrees beyond 90 while seated at edge of bed. Hip abduction WFL. Knee flexion WFL 10 degrees to 90 degrees. Knee extension -10 degrees. Ankle dorsiflexion to neutral only. Ankle plantarflexion 20 degrees from neutral. Left Lower Extremity: Hip flexion allows about 20 degrees beyond 90 while seated at edge of bed. Hip abduction WFL. Knee flexion -20degrees to 90 degrees. Ankle dorsiflexion to neutral only. Ankle plantarflexion 20 degrees from neutral. Strength: Right Upper Extremity: Shoulder flexors 4/5. Shoulder abductors 4/5. Elbow flexors 4/5. Elbow extensors 4/5. Heel Coverer Machine Operator strong. Left Upper Extremity: Shoulder flexors 4/5. Shoulder abductors 4/5. Elbow flexors 4/5. Elbow extensors 4/5. Heel Coverer Machine Operator strong. Right Lower Extremity: Hip flexors 3-/5. Hip abductors 4-/5. Knee flexors 4/5. Knee extensors 3-/5. Ankle dorsiflexors 3-/5. Ankle plantarflexors 3-/5. Left Lower Extremity: Hip flexors 3-/5. Hip abductors 4-/5. Knee flexors 4/5. Knee extensors 3-/5. Ankle dorsiflexors 3-/5. Ankle plantarflexors 3-/5. Bed Mobility/Transfers: Supine to sit SBA with HOB 30 degrees Sit to stand with contact guard assist with moderate cues for safe/correct technique Stand to sit with stand by assist with with moderate cues for safe/correct technique Bed to reclining chair stand by assist with with moderate cues for safe/correct technique Gait: Instructed patient with level surface ambulation of 250 feet requiring contact guard assist, needed one seated rest. Kait decreased. Step height decreased. Step length decreased. No LOB. No pain. No dizziness. Required moderate to maximal verbal cues for walker management and sit<>stand from wheelchair. Mild SOB. Balance: Static Sitting: Normal Dynamic Sitting: Normal Static Standing: Fair Dynamic Standing: Fair Assessment: Patient requires standby assist for all mobility ADL performance but required extensive cueing to navigate through an unfamiliar environment with all unfamiliar people for the first time. Discharge destination may highly depend on caregiver availability as patient will require 24/7 supervision due to impaired safety awareness. Although physically patient did not require assistance and issues of B knee pain/instability did not arise at time of evaluation, continued observation may be needed to determine any change in behavior and level of dependence throughout the day. Patient continues to present with clinical signs and symptoms consistent with current/admitting diagnoses that have resulted to mobility limitations, gait instability, generalized weakness, and overall ADL decline as demonstrated by the following impairment level findings: 1. Decreased strength to B LE major muscle groups 2. Impaired standing balance 3. Impaired activity tolerance 4. Limitation of joint range of motion in R hip 5. Shortness of breath 6. Impaired safety awareness Impairments are continuing to contribute to the following functional limitations: 1. Decline in bed mobility skills 2. Decline in transfer skills 3. Difficulty with ambulation without assistive device and physical assistance 4. Increased completion time for mobility ADL performance 5. Increased risk for falls Goals: Goals X1 week 1. Supine-Sit independent NOT MET 2. Sit-Supine independent NOT MET 3. Sit-Stand independent NOT MET 4. Stand-Sit independent with FWW NOT MET 5. Bed-Chair independent with FWW NOT MET 6. Chair-Bed independent with FWW NOT MET 7. Supervision gait on level surface with use of FWW for at least 250 feet without report of pain nor dyspnea NOT MET 8. Supervision stair negotiation while holding onto B rails for at least 5 steps without report of pain nor dyspnea NOT MET 9. Supervision with home exercise program NOT MET 10. Good static and dynamic standing balance/tolerance NOT MET DISCHARGE RECOMMENDATIONS: If 24/7 supervision is available at home and is able to provide needed physical assistance in instances of increased confusion as well as increased dependence, person may thrive at home. Otherwise, SNF placement is recommended. TREATMENT CODE/TIME: HI Thank you for the opportunity to participate in the care of this patient. Josiane Benson PT, DPT, CLT [facility] [place], [place]
== END 2021-05-17 17:58 | disposition home health service (06) | DRG 57 ==
LOC: ER 21:22 → MS 22:02
PROVIDERS: Emergency Medicine; Admitting Provider Family Medicine; Emergency Provider Physician Assistant; PCP Family Medicine; Visit Provider Family Medicine
DX: G31.83 Neurocognitive disorder with Lewy bodies (principal); R44.3 Hallucinations, unspecified; N18.9 Chronic kidney disease, unspecified; R53.1 Weakness; E78.5 Hyperlipidemia, unspecified; Z20.822 Contact with and (suspected) exposure to COVID-19; I12.9 Hypertensive chronic kidney disease with stage 1 through stage 4 chronic kidney disease, or unspecified chronic kidney disease; R29.6 Repeated falls; W18.39XA Other fall on same level, initial encounter; Z66 Do not resuscitate; K59.00 Constipation, unspecified; F02.80 Dementia in other diseases classified elsewhere, unspecified severity, without behavioral disturbance, psychotic disturbance, mood disturbance, and anxiety; I95.1 Orthostatic hypotension; I83.90 Asymptomatic varicose veins of unspecified lower extremity; R26.81 Unsteadiness on feet; Z87.891 Personal history of nicotine dependence; D75.89 Other specified diseases of blood and blood-forming organs
CPT/HCPCS: 36415; 80053; 85027; 87635; 93005; 96360; 96361; 97110; 97162; 97530; 99285; J1650; 81003; 82607; 84443; 85025; 93010; 99231; 99238; G0378

== ENCOUNTER → 2021-06-14 10:54 | Outpatient (BNVA) | payer MEDICARE, BC, SELFPAY | PROVIDERS: PCP Family Medicine; Referring Provider Family Medicine; Visit Provider Nurse Practitioner Adult Health | DX: G31.83 Neurocognitive disorder with Lewy bodies (principal); F02.80 Dementia in other diseases classified elsewhere, unspecified severity, without behavioral disturbance, psychotic disturbance, mood disturbance, and anxiety | CPT/HCPCS: 99213 ==

== ENCOUNTER → 2022-02-07 09:58 | Outpatient (BNVA) | payer MEDICARE, BC, SELFPAY | PROVIDERS: PCP Family Medicine; Referring Provider Family Medicine; Visit Provider Nurse Practitioner Adult Health | DX: G31.83 Neurocognitive disorder with Lewy bodies (principal); F02.80 Dementia in other diseases classified elsewhere, unspecified severity, without behavioral disturbance, psychotic disturbance, mood disturbance, and anxiety | CPT/HCPCS: 99213; 99215 ==

== ENCOUNTER → 2022-04-26 07:44 | Outpatient (BNVA) | payer MEDICARE, BC, SELFPAY | PROVIDERS: PCP Family Medicine; Referring Provider Family Medicine; Visit Provider Nurse Practitioner Adult Health | DX: G31.83 Neurocognitive disorder with Lewy bodies (principal); F02.80 Dementia in other diseases classified elsewhere, unspecified severity, without behavioral disturbance, psychotic disturbance, mood disturbance, and anxiety | CPT/HCPCS: 99212; 99443 ==

== ENCOUNTER → 2022-07-07 13:21 | Outpatient (BNVA) | payer MEDICARE, BC, SELFPAY | PROVIDERS: PCP Family Medicine; Referring Provider Family Medicine; Visit Provider Nurse Practitioner Adult Health | DX: G31.83 Neurocognitive disorder with Lewy bodies (principal); F02.80 Dementia in other diseases classified elsewhere, unspecified severity, without behavioral disturbance, psychotic disturbance, mood disturbance, and anxiety | CPT/HCPCS: 99213; 99214 ==

== ENCOUNTER 2023-01-31 06:22 | Inpatient (IN) | payer MEDICARE, BC, SELFPAY ==
--- NOTE | 2023-01-31 06:15 | RT.EKG_ITS ---
APPROVED REPORT Exam: Resting ECG Reason for Exam: fall Patient Location: E HR:75 bpm ECG Measurements Heart Rate 75 AXIS AL 190 P 34 QRSd 93 QRS 36 QT 408 T 0 QTc 457 Conclusion Sinus rhythm...normal P axis, V-rate 60- 99 Probable left atrial enlargement...P >50mS, <-0.10mV V1 Narrow complex normal sinus rhythm at a rate of 75. Normal axis. Intervals within normal limits. N o acute injury pattern. Minor T wave inversion slightly more pronounced in lead III. No ST segment abnormalities.
--- NOTE | 2023-01-31 06:18 | ED.GENADUL_ITS ---
Discharge Plan Discharge Details Chief Complaint: Trauma Primary Care Provider: Derek Leal ED Provider: Sterling Richardson Home Meds and New Rx's Prescriptions: No Action benazepril 20 mg tablet 20 mg PO DAILY Qty: 1 0RF omeprazole 20 mg capsule,delayed release(DR/EC) 20 mg PO DAILY Qty: 1 0RF cyanocobalamin (vitamin B-12) 1,000 mcg capsule 1,000 mcg PO DAILY multivitamin [Daily Multi-Vitamin] 1 EACH tablet 1 ea PO DAILY sennosides [Senokot] 8.6 mg Tablet 1 tab PO BID PRN PRNQty: 20 0RF Medical Decision Making Primary survey intact. Reassuring shock index. On secondary survey patient appears to have left upper chest wall tenderness and midline thoracic or lumbar spinal tenderness. Given his tenderness and history of falling will obtain CT head and cervical spine to assess for intracranial hemorrhage and cervical spinal fracture. Given left-sided chest wall tenderness I am concerned for the possibility of rib fractures so we will obtain dry CT chest and add on abdomen to assess for rib fractures. Based on low mechanism of injury my suspicion for viscus injury is low so I do not feel that the patient requires a contrast study. We will also add on T and L spine reconstructions. We will obtain basic labs. We will obtain additional history from the patient's . We will also obtain repeat troponin if his first troponin is negative. It seems as if his chest pain occurred following but not preceding his fall. His ECG is nonische ernestine. 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 No preceding chest pain or headache and as result I am not suspicious for ACS nor subarachnoid hemorrhage. No nausea nor vomiting to suggest intra-abdominal process. Patient reportedly ambulates without assistance at baseline. If his trauma assessment is reass uring he will require an ambulatory trial and a tertiary survey along with a p.o. trial. He was markedly hypertensive on arrival however his pressure came down from the 200s systolic down to 150 systolic following a 50 mcg push of fentanyl. 7 AM CBC lacks anemia leukocytosis and thrombocytopenia. 7:12 AM Troponin negative. Basic metabolic panel with CKD but no superimposed JAGDISH. No acute electrolyte abnormalities. Ethanol negative. Preliminary read of the patient's CT head there is no acute intracranial hemorrhage. 7:45 AM Virtual radiology read of CT head and cervical spine negative for any acute abnormalities. No lumbar nor thoracic spinal injuries.Negative CT chest with no acute osseous abnormalities. No pneumothorax. CT abdomen with no free air and no acute osseous abnormalities. I updated the patient and his . I cleared his collar. We will sign him out to Dr. Dhaliwal pending tertiary survey and reassessment. Chronic conditions affecting the care of the patient: DJD and Lewy body dementia History obtained from an outside historian: Paramedics External record review: [place] [facility] [place] Diagnostic interpretations performed by me: [Per my independent interpretation chest x-ray shows:] N/A Per my independent interpretation EKG shows: Narrow complex normal sinus rhythm at a rate of 75. Normal axis. Intervals within normal limits. No acute injury pattern. Minor T wave inversion slightly more pronounced in lead III. No ST segment abnormalities. Medications: fentanyl Social determinants of health affecting disposition: N/A Management discussed with: Dr. Dhaliwal Treatment/interventions considered: N/A Response to therapies provided: Pain improved with fentanyl HPI General Date/Time Provider Initiated Documentation: 01/31/23 06:52 . HPI Narrative: This is an 87-year-old male with a history of Lewy body dementia arriving to the emergency department via EMS following a fall. Patient reportedly lost his balance this evening at home while turning to get back into his bed. His thinks that he might have hit his head on a piece of furniture. He did not lose consciousness. He complained of pain in the back of his neck and in his lower back and left chest. He has not been nauseous nor vomiting. Paramedics note that he fell onto a lightly carpeted floor. Patient told paramedics that he may have hit a toy chest on the way to the ground. He had no preceding chest pain dizziness syncope nor headache. Related Data Home Medications Medication Instructions Recorded Confirmed multivitamin (Daily Multi-Vitamin 1 ea PO DAILY 12/06/16 01/31/23 tablet) sennosides 8.6 mg tablet (Senokot) 1 tab PO BID PRN PRN #20 tabs 05/17/21 01/31/23 benazepril 20 mg tablet 20 mg PO DAILY #1 tab 06/11/21 01/31/23 omeprazole 20 mg capsule,delayed 20 mg PO DAILY #1 cap 06/11/21 01/31/23 release cyanocobalamin (vitamin B-12) 1,000 mcg PO DAILY 07/07/22 01/31/23 1,000 mcg capsule Previous Rx's Medication Instructions Recorded sennosides 8.6 mg tablet (Senokot) 1 tab PO BID PRN PRN #20 tabs 05/17/21 benazepril 20 mg tablet 20 mg PO DAILY #1 tab 06/11/21 omeprazole 20 mg capsule,delayed 20 mg PO DAILY #1 cap 06/11/21 release Allergies Allergy/AdvReac Type Severity Reaction Status Date / Time No Known Drug Allergies Allergy Verified 07/07/22 13:46 General ALEJANDRO: 3 PFSH All Active Problems Lewy body dementia without behavioral disturbance (Acute) Ambulatory dysfunction (Chronic) Frequent falls (Acute) Hyperglycemia (Acute) Orthostatic hypotension (Acute) POLST (Physician Orders for Life-Sustaining Treatment) (Acute) Completed 08/21/2020, DNR/DNI. 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 Lower urinary tract symptoms (LUTS) (Acute 06/20/17) trial Tamsulosin 05/2015, not benefit 08/2015 Hyperlipidemia (Acute 10/17/11) goal LDL<100; risk 25%; started med rx 02/2008 Essential hypertension (Acute) RX NOT WELL TOLERATED , CURRENT BENAZEPRIL SINCE 2007 Constipation (Acute 09/13/11) CHRONIC ; diverticulosis on colonoscopy; Dr Lozoya GI; hospitalized [facility] 11/2015 Chronic constipation (Acute) Medical History Constipation DJD (degenerative joint disease) Essential hypertension Heart burn Hyperlipidemia Obesity Osteoarthrosis involving shoulder region Small bowel obstruction Small bowel obstruction Tubular adenoma of colon Varicose veins Surgical History Arthroplasty of knee 1986 Arthroscopy, Shoulder 1987 Cholecystectomy (07/16/12) JOSIAS Colonoscopy - IV Sedation 2008 EGD - IV Sedation 2003-Dr. Devora Meléndez shoulder (01/15/14) Balbir Leblanc, ? total shoulder prosthesis Replacement of total knee joint (10/07/14) Rika knee, Balbir Booker Transurethral prostatectomy 1986 Family History Mother No problems noted. Father , stomach ca at age 64. No problems noted. Other Brain tumor Breast cancer Rheumatic fever Stomach cancer TIA (transient ischemic attack) Social History Smoking/Tobacco Use Status: Former Tobacco Use Smokeless tobacco user: other Smoking risk assessment performed?: Yes Alcohol Intake: never Drug use: Never Substance use type: does not use Household members: spouse Housing: house Number of Children: 3 Communication Needs: None Pets and animals: No Current gender identity: male What is your relationship status?: Panel score (0-1 are the most socially isolated patients): 1 What type of physical activity do you participate in: none Seatbelt use: always Drive intox or ride w/intox lokie driver: No Working smoke detector in home: Yes Fire extinguisher in home: No Carbon monox detector in home: Yes Do you feel safe at home: Yes Do you feel safe in your relationship?: Yes Additional Social history: Lives with Chasity Exam Narrative Exam Narrative: General: Chronically ill-appearing in no acute distress speaking in complete sentences. Head: Normocephalic, atraumatic. Eye: Pupils equal, round reactive to light. Right eye with mild thick drainage. No conjunctival injection extraocular eye movements intact. No scleral icterus. Ear, nose, mouth, throat: Grossly normal inspection. Normal voice, handling secretions normally. No hemotympanum bilaterally. No septal hematoma. Neck: Trachea midline. Midline cervical spinal tenderness. Cardiovascular: Well-perfused distal extremities. Regular rate and rhythm. Respiratory: Nonlabored respiration. Clear lungs bilaterally. Gastrointestinal: Nondistended abdomen.Soft nontender abdomen. Musculoskeletal: No edema. Moving all 4 extremities spontaneously. Pelvis stable to anterior and posterior compression. No tenderness to bilateral upper and lower extremities on palpation. Skin: Normal for age and race, grossly normal temperature and turgor. No acute rash. Neurologic: Alert and oriented to person and events but neither place nor time. Moving all 4 extremities spontaneously. Psychiatric: Mood and manner are appropriate.
[2023-01-31 06:21] VITALS: BP 202/108; PULSE 78; RESP 17; TEMP 36.5; O2SAT 98
[2023-01-31] MEDS: fentaNYL 100 MCG/2 ML VIAL 50 MCG IVP (06:30)
--- NOTE | 2023-01-31 06:30 | DI.CT_ITS ---
Exam(s) CT CHEST/ABD/PEL WO CT THORACIC LUMBAR SPINE REC EXAM: CT CHEST/ABD/PEL WO and CT thoracic and lumbar spine recons CLINICAL HISTORY: History of falling TECHNIQUE: Imaging Protocol: Axial computed tomography images with coronal and sagittal reformatted images were created and reviewed COMPARISON: CT ABD PELVIS WO CONTRAST from 04/17/[address] CHEST WO from 08/11/2020 FINDINGS: Lack of IV contrast does limit the examination. The examination is limited due to patient motion art ifact. CHEST: Tracheobronchial tree: Patent where visualized. Pulmonary parenchyma: No consolidation or dominant measurable mass. There is dependent atelectasis in the lung bases. Mediastinum and Saranya: No dominant adenopathy or fluid collection. The esophagus is unremarkable. Ther e is a small hiatal hernia. Thyroid gland: Unremarkable. Pleura: No effusion or pneumothorax. Heart: Cardiomegaly. Coronary artery calcifications are present. There is calcification of the mitr al annulus. No pericardial effusion. Aorta: Thoracic aorta non-dilated. Atherosclerosis. Lymph nodes: Within normal limits. Bones:The patient has a left total shoulder replacement. There are degenerative changes seen in the thoracic spine. Soft tissues: Unremarkable. CT thoracic spine recons: Age-appropriate degenerative changes are present. There is a mild right co nvex curvature of the thoracic spine. No acute fractures or subluxations are present. The bones are osteopenic. ABDOMEN: Liver: Normal density. No measurable mass. Gallbladder and Biliary Tract: Status post cholecystectomy. No significant biliary ductal dilatation . Pancreas: Normal density, no abnormal calcifications or inflammatory process. Spleen: Normal. Adrenals: No masses seen. Kidneys: Normal size, contour and axis. No radiodense stones or obstructive uropathy. There are stabl e bilateral renal cysts. No follow-up is recommended. Abdominal Aorta: Abdominal portion non-dilated. Atherosclerosis. Bowel: There is extensive diverticulosis of the colon, but no evidence of acute diverticulitis. Ther e is no evidence of bowel obstruction or bowel wall thickening. No evidence of appendicitis. Peritoneal Cavity: No ascites, collection or mesenteric inflammatory response. No free air. Lymph Nodes: Within normal limits. Bones: Within normal limits for the patient's age. Soft Tissues: Unremarkable. Lumbar spine recons: Age-appropriate degenerative changes are present. The bones are osteopenic. Th ere is a mild depression of the L1 superior endplate not present on the prior examinations from 2017 and 2019. There also appears to be disruption of the cortex in the superior endplate. (Series 7, im ages 76-81). PELVIS: Bladder: Symmetric distention, no gross wall thickening. Reproductive Organs: Mildly enlarged prostate gland. Lymph Nodes: Within normal limits. Bones: Within normal limits for the patient's age. IMPRESSION: 1. No acute pulmonary process. 2. No acute abdominal or pelvic organ injury as seen on this noncontrast examination. 3. No acute fracture or subluxation in the thoracic spine. 4. Mild depression of the L1 superior endplate not present on the prior examinations from 2018 in 202 0. An acute mild compression fracture deformity cannot be excluded. Please correlate clinically. 5. Findings were discussed with Dr. Graves at 2:30 p.m. on 01/31/2023. RADIATION DOSE DELIVERED: 2186.68 mGy.cm Total DLP DATA REPOSITORY: All CT scans at this facility are submitted to the National Radiology Data Registry (NRDR) Dose Index Registry (DIR) with the [employer] (A[employer]). RADIATION OPTIMIZATION: All CT scans at this facility use at least one of these dose optimization te chniques: automated exposure control; mA and/or kV adjustment per patient size (includes targeted exa ms where dose is matched to clinical indication); or iterative reconstruction.
--- NOTE | 2023-01-31 06:30 | DI.CT_ITS ---
Exam(s) CT HEAD CERVICAL SPINE WO EXAM: CT HEAD CERVICAL SPINE WO CLINICAL HISTORY: History of falling. TECHNIQUE: Imaging Protocol: Axial computed tomography images with coronal and sagittal reformatted images were created and reviewed COMPARISON: CT CT HEAD CERVICAL SPINE WO from 08/11/2020 FINDINGS: CT Head: Ventricles and Extra axial spaces: Normal in size and morphology for the patient's age. Hemorrhage: None. Cerebral parenchyma: No evidence of an acute territorial infarct. Mild small vessel ischemic disease . Midline shift: None. Brainstem/Cerebellum: Normal. Calvarium: Normal. Visualized Paranasal sinuses/Mastoids: Mild mucosal thickening in the ethmoid air cells bilaterally. The remaining visualized paranasal sinuses and mastoid air cells are clear. Soft Tissues: Unremarkable. CT Cervical Spine: Bones: No acute fracture or subluxation. There are degenerative changes seen in the cervical spine. Soft Tissues: Unremarkable. Lung Apices: Clear. IMPRESSION: 1. No acute intracranial process. 2. No acute fracture or subluxation in the cervical spine. RADIATION DOSE DELIVERED: 1,395.06mGy.cm Total DLP DATA REPOSITORY: All CT scans at this facility are submitted to the National Radiology Data Registry (NRDR) Dose Index Registry (DIR) with the [employer] (ACR). RADIATION OPTIMIZATION: All CT scans at this facility use at least one of these dose optimization te chniques: automated exposure control; mA and/or kV adjustment per patient size (includes targeted exa ms where dose is matched to clinical indication); or iterative reconstruction.
[2023-01-31 06:46] LABS: Abs Immature Grans 0.09 10^3/uL (0.0-0.06); Absolute Basophil Count 0.03 10^3/uL (0.0-0.2); Absolute Eosinophil Count 0.16 10^3/uL (0.0-0.7); Absolute Lymphocyte Count 1.08 10^3/uL (1.2-3.4); Absolute Neutrophil Count 4.29 10^3/uL (1.2-6.7); Basophils % 0.5; Eosinophils % 2.6; HCT 43.6 % (40.0-50.0); HGB 14.9 g/dL (13.5-17.5); Immature Grans % 1.5; Lymphocytes % 17.9; MCH 31.8 pg (27.0-33.0); MCHC 34.2 % (32.0-36.0); MCV 93 fL (80-95); MPV 10.3 fL (8.0-11.0); Monocytes % 6.6; Neutrophils % 70.9; Platelet Count 157 10^3/uL (130-400); RBC 4.69 10^6/uL (4.36-5.78); RDW 12.6 % (11.8-14.1); WBC 6.05 10^3/uL (4.4-10.8)
[2023-01-31 07:04] LABS: Anion Gap 4.9 mmol/L (3-11); BUN 16 mg/dL (7-18); CO2 28.1 mmol/L (21.0-32.0); CREATININE 1.4 mg/dL (0.70-1.30); Calcium 8.9 mg/dL (8.5-10.1); Chloride 108 mmol/L (98-107); Estimated GFR 48.95 (mL/min/1.73m2); Glucose 87 mg/dL (74-106); Potassium 3.7 mmol/L (3.5-5.1); Sodium 141 mmol/L (136-145); Troponin I < 50 ng/L (<or=60)
[2023-01-31 07:09] LABS: ETHANOL BLOOD < 3.0 mg/dL (<10)
--- NOTE | 2023-01-31 07:17 | DI.VRAD_ITS ---
PROCEDURE INFORMATION: Exam: CT Head Without Contrast Exam date and time: 01/31/2023 6:50 AM Age: 87 years old Clinical indication: Injury or trauma; Fall; Blunt trauma (contusions or hematomas); Consciousness not specified TECHNIQUE: Imaging protocol: Computed tomography of the head without contrast. Radiation optimization: All CT scans at this facility use at least one of these dose optimization techniques: automated exposure control; mA and/or kV adjustment per patient size (includes targeted exams where dose is matched to clinical indication); or iterative reconstruction. COMPARISON: CT HEAD CERVICAL SPINE WO 08/11/2020 12:45 PM FINDINGS: Brain: Mild diffuse cerebral atrophy. No intracranial hemorrhage identified. No ischemic territorial infarcts identified. Cerebral ventricles: The ventricles are within normal limits. Paranasal sinuses: The visualized sinuses are unremarkable. Mastoid air cells: The visualized mastoid air cells are well aerated. Bones/joints: The osseous structures are intact. Soft tissues: Unremarkable. IMPRESSION: No acute intracranial abnormality identified. PROCEDURE INFORMATION: Exam: CT Cervical Spine Without Contrast Exam date and time: 01/31/2023 6:50 AM Age: 87 years old Clinical indication: Injury or trauma; Fall; Blunt trauma (contusions or hematomas); Consciousness not specified TECHNIQUE: Imaging protocol: Computed tomography of the cervical spine without contrast. Radiation optimization: All CT scans at this facility use at least one of these dose optimization techniques: automated exposure control; mA and/or kV adjustment per patient size (includes targeted exams where dose is matched to clinical indication); or iterative reconstruction. COMPARISON: CT HEAD CERVICAL SPINE WO 08/11/2020 12:45 PM FINDINGS: Bones/joints: The cervical spine demonstrates straightening of the normal lordotic curvature. No spondylolisthesis. The vertebral bodies maintain normal height. No fracture identified. Multilevel loss of intervertebral disc height with mild endplate degenerative changes. Fusion and partial fusion of the facet joints in the upper cervical spine. Lungs: The visualized lung apices are normal. Soft tissues: No prevertebral soft tissue swelling identified. IMPRESSION: No acute fracture or traumatic malalignment identified within the cervical spine. Dictated and Authenticated by: Félix Jackson MD. Ordering:PATRICK Katz MD
--- NOTE | 2023-01-31 07:24 | DI.VRAD_ITS ---
PROCEDURE INFORMATION: Exam: CT Thoracic Spine Without Contrast Exam date and time: 01/31/2023 6:54 AM Age: 87 years old Clinical indication: Injury or trauma; Blunt trauma (contusions or hematomas); Injury details: Fall, trauma TECHNIQUE: Imaging protocol: Computed tomography of the thoracic spine without contrast. 3D rendering (Not supervised by radiologist): MIP and/or 3D reconstructed images were created by the technologist. Radiation optimization: All CT scans at this facility use at least one of these dose optimization techniques: automated exposure control; mA and/or kV adjustment per patient size (includes targeted exams where dose is matched to clinical indication); or iterative reconstruction. COMPARISON: CT HEAD CERVICAL SPINE WO 01/31/2023 6:50 AM FINDINGS: Bones/joints: Chronic degenerative changes are present with disc space narrowing and scattered osteophytes. No acute fracture. Normal alignment. No significant disc bulge or herniation. No severe spinal canal stenosis. No significant neural foraminal narrowing. Soft tissues: Unremarkable. IMPRESSION: No acute abnormality. PROCEDURE INFORMATION: Exam: CT Lumbar Spine Without Contrast Exam date and time: 01/31/2023 6:54 AM Age: 87 years old Clinical indication: Injury or trauma; Blunt trauma (contusions or hematomas); Injury details: Fall, trauma TECHNIQUE: Imaging protocol: Computed tomography of the lumbar spine without contrast. 3D rendering (Not supervised by radiologist): MIP and/or 3D reconstructed images were created by the technologist. Radiation optimization: All CT scans at this facility use at least one of these dose optimization techniques: automated exposure control; mA and/or kV adjustment per patient size (includes targeted exams where dose is matched to clinical indication); or iterative reconstruction. COMPARISON: CT ABD PELVIS WO CONTRAST 04/17/2018 11:10 AM FINDINGS: Bones/joints: Chronic degenerative changes are present especially at the L5-S1 level with disc space narrowing and small osteophytes. No acute fracture. Normal alignment. No significant disc bulge or herniation. No severe spinal canal stenosis. No significant neural foraminal narrowing. Soft tissues: Unremarkable. IMPRESSION: No acute findings. Dictated and Authenticated by: Vinod Villalobos MD. Ordering:PATRICK Katz MD
--- NOTE | 2023-01-31 07:31 | DI.VRAD_ITS ---
PROCEDURE INFORMATION: Exam: CT Chest Without Contrast; Diagnostic Exam date and time: 01/31/2023 6:54 AM Age: 87 years old Clinical indication: Injury or trauma; Generalized; Blunt trauma (contusions or hematomas); Injury details: Fall, trauma TECHNIQUE: Imaging protocol: Diagnostic computed tomography of the chest without contrast. Radiation optimization: All CT scans at this facility use at least one of these dose optimization techniques: automated exposure control; mA and/or kV adjustment per patient size (includes targeted exams where dose is matched to clinical indication); or iterative reconstruction. COMPARISON: CT CHEST WO 08/11/2020 12:52 PM FINDINGS: Lungs: There is dependent atelectasis in the lung bases. No acute pulmonary infiltrates. Pleural spaces: Unremarkable. No pneumothorax. No pleural effusion. Heart: The heart is not enlarged. There is calcification of the coronary arteries and of the mitral annulus. Lymph nodes: Unremarkable. No enlarged lymph nodes. Vasculature: There is calcification of the thoracic aorta. No thoracic aortic aneurysm. Diaphragm: Small sliding hiatal hernia. Bones/joints: Unremarkable. No acute fracture. Soft tissues: Unremarkable. IMPRESSION: No acute abnormality. PROCEDURE INFORMATION: Exam: CT Abdomen And Pelvis Without Contrast Exam date and time: 01/31/2023 6:54 AM Age: 87 years old Clinical indication: Injury or trauma; Generalized; Blunt trauma (contusions or hematomas); Injury details: Fall, trauma TECHNIQUE: Imaging protocol: Computed tomography of the abdomen and pelvis without contrast. Radiation optimization: All CT scans at this facility use at least one of these dose optimization techniques: automated exposure control; mA and/or kV adjustment per patient size (includes targeted exams where dose is matched to clinical indication); or iterative reconstruction. COMPARISON: CT ABD PELVIS WO CONTRAST 04/17/2018 11:10 AM FINDINGS: Liver: Normal. No mass. Gallbladder and bile ducts: Cholecystectomy. Normal bile ducts. Pancreas: Normal. No ductal dilation. Spleen: Normal. No splenomegaly. Adrenal glands: Normal. No mass. Kidneys and ureters: Small benign-appearing cysts are present in the kidneys. Otherwise the kidneys are unremarkable. Stomach and bowel: Prominent diverticulosis of the descending and sigmoid colon. No acute diverticulitis. No significant bowel dilatation or evidence of bowel obstruction. Appendix: No evidence of appendicitis. Intraperitoneal space: Unremarkable. No free air. No significant fluid collection. Vasculature: Abdominal aorta is calcified. No abdominal aortic aneurysm. Lymph nodes: Unremarkable. No enlarged lymph nodes. Urinary bladder: Unremarkable as visualized. Reproductive: Unremarkable as visualized. Bones/joints: Unremarkable. No acute fracture. Soft tissues: Unremarkable. IMPRESSION: No acute abnormality. Dictated and Authenticated by: Vinod Villalobos MD. Ordering:PATRICK Katz MD
--- NOTE | 2023-01-31 08:00 | DI.RAD_ITS ---
Exam(s) XR FEMUR RT EXAM: XR FEMUR RT CLINICAL HISTORY: fall, right hip/leg pain. TECHNIQUE: 2D digital imaging was performed of the right femur. Five images were obtained. AP and l ateral views were obtained. COMPARISON: No exams were available for comparison FINDINGS: BONES: No acute fracture is present. No bony destructive lesion is seen. Visualized portion of knee a nd hip joints are unremarkable. SOFT TISSUE: Atherosclerosis is present. IMPRESSION: No acute fracture or dislocation. DATA REPOSITORY: RADIATION DOSE DELIVERED:
[2023-01-31] MEDS: Acetaminophen 500 MG TAB 1000 MG PO (08:11)
--- NOTE | 2023-01-31 12:06 | W.PM.HP.N ---
Date of service: 01/31/23 Time of Service: 12:07 Assessment and Plan Assessment and plan (1) Ambulatory dysfunction: Status: Chronic Assessment and plan: fall at home, states this is not typical. PT to evaluate and treat review of record with previous walker use fall precautions (2) Lewy body dementia without behavioral disturbance: Status: Acute Assessment and plan: anticipate delirium while hospitalized, history of hallucinations safety precautions (3) Essential hypertension: Status: Acute Assessment and plan: continue home medication and monitor, adjust as needed (4) Discharge planning issues: Status: Acute Assessment and plan: case management for discharge planning anticipate a discharge to rehab per PT evaluation discussed with Dr Hartmann History of Present Illness History of Present Illness Chief Complaint: back pain Narrative: patient with dementia, lewy body, who had a witnessed mechanical fall at home. unable to be reambulated in the ED. imaging shows no acute fracture, PT consulted for discharge planning and not safe and pain not managed. will be admitted for pain management and PT. Review of Systems All systems reviewed & are unremarkable except as noted in HPI and below PFSH All Active Problems (Updated 01/31/23 @ 14:18 by Romy Zheng NP) Discharge planning issues (Acute) Lewy body dementia without behavioral disturbance (Acute) Ambulatory dysfunction (Chronic) Frequent falls (Acute) Hyperglycemia (Acute) Orthostatic hypotension (Acute) POLST (Physician Orders for Life-Sustaining Treatment) (Acute) Completed 08/21/2020, DNR/DNI. 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 Lower urinary tract symptoms (LUTS) (Acute 06/20/17) trial Tamsulosin 05/2015, not benefit 08/2015 Hyperlipidemia (Acute 10/17/11) goal LDL<100; risk 25%; started med rx 02/2008 Essential hypertension (Acute) RX NOT WELL TOLERATED , CURRENT BENAZEPRIL SINCE 2007 Constipation (Acute 09/13/11) CHRONIC ; diverticulosis on colonoscopy; Dr Lozoya GI; hospitalized [facility] 11/2015 Chronic constipation (Acute) Medical History Constipation DJD (degenerative joint disease) Essential hypertension Heart burn Hyperlipidemia Obesity Osteoarthrosis involving shoulder region Small bowel obstruction Small bowel obstruction Tubular adenoma of colon Varicose veins Surgical History Arthroplasty of knee 1986 Arthroscopy, Shoulder 1986 Cholecystectomy (07/16/12) JOSIAS Colonoscopy - IV Sedation 2008 EGD - IV Sedation 2003-Dr. Devora Meléndez shoulder (01/15/14) Balbir Leblanc, ? total shoulder prosthesis Replacement of total knee joint (10/07/14) Rika knee, Balbir Booker Transurethral prostatectomy 1986 Family History Mother No problems noted. Father , stomach ca at age 64. No problems noted. Other Brain tumor Breast cancer Rheumatic fever Stomach cancer TIA (transient ischemic attack) Social History Smoking/Tobacco Use Status: Former Tobacco Use Smokeless tobacco user: other Smoking risk assessment performed?: Yes Alcohol Intake: never Drug use: Never Substance use type: does not use Household members: spouse Housing: house Number of Children: 3 Communication Needs: None Pets and animals: No Current gender identity: male What is your relationship status?: Panel score (0-1 are the most socially isolated patients): 1 What type of physical activity do you participate in: none Seatbelt use: always Drive intox or ride w/intox transit mixer driver: No Working smoke detector in home: Yes Fire extinguisher in home: No Carbon monox detector in home: Yes Do you feel safe at home: Yes Do you feel safe in your relationship?: Yes Additional Social history: Lives with Chasity Santa Allergies and Home Medications Allergies Allergy/AdvReac Type Severity Reaction Status Date / Time No Known Drug Allergies Allergy Verified 07/07/22 13:46 Home Medications Medication Instructions Recorded Confirmed Type multivitamin (Daily Multi-Vitamin 1 ea PO DAILY 12/06/16 01/31/23 History tablet) sennosides 8.6 mg tablet (Senokot) 1 tab PO BID PRN PRN #20 tabs 05/17/21 01/31/23 Rx benazepril 20 mg tablet 20 mg PO DAILY #1 tab 06/11/21 01/31/23 Rx omeprazole 20 mg capsule,delayed 20 mg PO DAILY #1 cap 06/11/21 01/31/23 Rx release cyanocobalamin (vitamin B-12) 1,000 mcg PO DAILY 07/07/22 01/31/23 History 1,000 mcg capsule Exam Const General: cooperative, comfortable and no acute distress Nutritional Appearance: obese Orientation: alert, awake and confused [facility] Head: normal to inspection, normocephalic and atraumatic Mouth: oral mucosae normal Chest Chest: normal inspection of the chest Resp Effort & Inspection: normal respiratory effort Auscultation: clear to auscultation bilaterally Cardio Rate: regular rate Rhythm: regular rhythm GI Inspection: normal to inspection Palpation: soft Auscultation: normal bowel sounds Skin General skin exam: no rashes or lesions noted Neuro General: patient alert, patient awake, no focal motor deficits and patient confused (at baseline according to ) Extrem General: normal to inspection and no pedal edema Results Labs 01/31/23 06:30 01/31/23 06:30 Labs: Laboratory Results - last 24 hr 01/31/23 01/31/23 06:30 06:30 WBC 6.05 RBC 4.69 Hgb 14.9 Hct 43.6 MCV 93 MCH 31.8 MCHC 34.2 RDW 12.6 Plt Count 157 MPV 10.3 Immature Gran % 1.5 Neutrophils % 70.9 Lymphocytes % 17.9 Monocytes % 6.6 Eosinophils % 2.6 Basophils % 0.5 Nucleated RBC % 0.0 Absolute Neutrophils 4.29 Absolute Lymphocytes 1.08 L Absolute Monocytes 0.40 Absolute Eosinophils 0.16 Absolute Basophils 0.03 Sodium 141 Potassium 3.7 Chloride 108 H Carbon Dioxide 28.1 Anion Gap 4.9 BUN 16 Creatinine 1.4 H Est GFR (CKD-EPI 2020) 48.95 Glucose 87 Calcium 8.9 Troponin I < 50 Ethyl Alcohol < 3.0 Last Vital Signs Temp 36.5 C 01/31/23 06:21 Pulse 78 01/31/23 06:21 Resp 17 01/31/23 06:21 BP 202/108 H 01/31/23 06:21 Pulse Ox 98 01/31/23 06:21 Time Spent Time spent with Patient: 40-54 minutes Time was spent: preparing to see the patient(eg.review tests), obtaining and/or reviewing separately otained hiistory, ordering medications,tests, procedures, indepentently interpreting results and counseling the patient
[2023-01-31] MEDS: Ketorolac 15 MG/ML VIAL IVP ×2 (12:55→16:53)
[2023-01-31] MEDS: Cyclobenzaprine 10 MG TAB PO (12:55)
[2023-01-31] MEDS: Lidocaine 5% Patch 1 PATCH TP (12:55)
--- NOTE | 2023-01-31 13:02 | PT.INIE ---
PT Notes Visit Reasons: [facility] Physical Therapy Inpatient Initial Evaluation Date: 01/31/2023 Referring Doctor: Joseph Hall MD PT Orders: PT CONSULT: dementia, falls Precautions: Fall. Standard. Activity as tolerated. Patient Profile/Admitting Diagnosis: Jose is an 87-year-old male with Lewy body dementia and past medical history significant for lumbago who presented to the ED today with primary complaint of low back pain, difficulty walking, and repeated falls with referral for PT for falls assessment and discharge recommendations. PMHX: All Active Problems? Lewy body dementia without behavioral disturbance (Acute) Ambulatory dysfunction (Chronic) Frequent falls (Acute) Hyperglycemia (Acute) Orthostatic hypotension (Acute) POLST (Physician Orders for Life-Sustaining Treatment) (Acute) Completed 08/21/2020, DNR/DNI.DNI (do not intubate) (Acute) DNR (do not resuscitate) (Acute) Hypotension (Acute) Hallucination (Acute) Chronic kidney disease (Chronic) Obesity, unspecified (Acute 09/13/11) BMI 38; GOAL 242 lbs? 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 started med rx 02/2008 Essential hypertension (Acute) RX NOT WELL TOLERATED , CURRENT BENAZEPRIL? SINCE 2007 Constipation (Acute 09/13/11) CHRONIC ; diverticulosis on colonoscopy; Dr Lozoya GI; hospitalized [facility] 11/2015 Chronic constipation (Acute) Medical History? Constipation DJD (degenerative joint disease) Essential hypertension Heart burn Hyperlipidemia Obesity Osteoarthrosis involving shoulder region Small bowel obstruction Small bowel obstruction Tubular adenoma of colon Varicose veins Surgical History? Arthroplasty of knee 1986 Arthroscopy, Shoulder 1987 Cholecystectomy (07/16/12) JOSIAS Colonoscopy - IV Sedation 2009EGD - IV Sedation 2003-Dr. Goddard shoulder (01/15/14) Dr. Jhonny Balbir Espinoza, ? total shoulder prosthesis Replacement of total knee joint (10/07/14) Rika knee, Balbir Booker Transurethral prostatectomy 1987 Social History/Home Situation: Lives with Chasity in a private home. primary caregiver. Requires supervision for indoor ambulation with use of front-wheeled walker. Equipment Owned/DME: [facility] Subjective: Complains of pain in left lower back area while trying to sit up from lying down and is sitting down from standing. Objective: General Observation: [id number] in bed with HOB at about 45 degrees. Chasity present in room. Mental Status: Alert and oriented as to person. Able to follow single-step commands. Easily distratced, requires frequent redirection. Pain: Moderate to significant pain in low back during movement transition from supint to sit and stand to sit. Vital Signs: Closely monitored by nursing staff ROM: Right Upper Extremity: Grossly WFL Left Upper Extremity: Grossly WFL Right Lower Extremity: Able to bring R knee towards chest without pain Left Lower Extremity: Only able to bring L knee halfaway to his chest due to pain Strength: Right Upper Extremity: Shoulder flexors 4/5. Shoulder abductors 4/5. Elbow flexors 4/5. Elbow extensors 4/5. Fund Accounting Manager strong. Left Upper Extremity: Shoulder flexors 4/5. Shoulder abductors 4/5. Elbow flexors 4/5. Elbow extensors 4/5. Fund Accounting Manager strong. Right Lower Extremity: Hip flexors 4/5. Hip abductors 4/5. Knee flexors 5/5. Knee extensors 4/5. Ankle dorsiflexors 4/5. Ankle plantarflexors 4/5. Left Lower Extremity: Hip flexors 3-/5. Hip abductors 3=/5. Knee flexors-/5. Knee extensors 3-/5. Ankle dorsiflexors 3-/5. Ankle plantarflexors 3-/5. Bed Mobility/Transfers: Supine to sit moderate assist of 2 after 2-3 attempts Sit to supine moderate assist of 2 Sit to stand minimal assist of 2 Stand to sit minimal assist of 2 Bed to chair moderate assist of 2 Reclining chair to bed moderate assist of 2 Gait: Instructed patient with level surface ambulation of 50 feet requiring minimal assist of 2. Kait decreased. Step height decreased. Step length decreased. required maximal cueing for walker management, limb advancement, hand placement and directions. required frequent redirection. Balance: Static Sitting: Fair Dynamic Sitting: Fair Static Standing: Fair Dynamic Standing: Poor Special Tests: Mobility Limitations Standardized Measure [facility] AM-PAC 6 clicks Basic Mobility Inpatient Short Form: Raw Score: 12 CMS Score: 69% deficit Informed Consent/Education: Patient was instructed in purpose of PT consult and plan of care. Agreeable to proceed with established PT POC to achieve personal goals. ASSESSMENT: Requires more assistance with mobility performance than Chasity can handle at home at this time. Will need short-term rehab to regain strength and achieve a more independent mobility level prior to goign home. Patient presents with clinical signs and symptoms consistent with current/admitting diagnoses that have resulted to mobility limitations, gait instability, generalized weakness, and overall ADL decline as demonstrated by the following impairment level findings: 1. Decreased strength to B UE/LE major muscle groups 2. Impaired sitting/standing balance 3. Impaired activity tolerance 4. Limitation of joint range of motion in L LE 5. Moderate pain in L lower back that limits mobility performance 6. Memory deficits from pre-existing dementia Impairments are contributing to the following functional limitations: 1. Decline in bed mobility skills 2. Decline in transfer skills 3. Difficulty with ambulation without assistive device and physical assistance 4. Increased completion time for mobility ADL performance 5. Increased risk for falls 6. Difficulty with managing steps alone safely Patient is assessed as a 61130 moderate complexity based on the following: History: 87-year-old female with past medical history as indicated above Examination: Demonstrable impairment in strength, balance, and mobility level with underlying impairments and functional limitations as exhibited above as well as deficit score of 69% utilizing the [facility] Mobility Inpatient Short Form Presentation: Evolving Decision Makin moderate complexity Goals: N/A. PT evaluation only and one treatment session only for functional mobility retraining. Plan of Care/Treatment Plan: N/A. PT evaluation only and one treatment session only for functional mobility retraining. DISCHARGE RECOMMENDATIONS: [] Home with no services [] [] Home with services [specify] [] Home with outpatient PT [] [X] SNF for continued rehabilitation. Patient will benefit from prison facility placement for continued skilled physical therapy services in order to progress mobility level, strength, and balance in preparation for a safe discharge to home. [] Head Refrigeration Engineer Care [] [] SNF versus LTC based on ability to participate and progress [] TREATMENT CODE/TIME: 95040 x 20 minutes, 19192 x 16 minutes beginning at 10:25 AM. Thank you for the opportunity to participate in the care of this patient. Josiane Benson PT, DPT, CLT [facility] [place], [place]
[2023-01-31 13:15] VITALS: BP 180/100; PULSE 83; RESP 17; TEMP 36.7; O2SAT 97
--- NOTE | 2023-01-31 13:33 | IN_ITS ---
Date of service: 01/31/23 Time of Service: 11:23 PT Notes Visit Reasons: Pain Physical Therapy Day Surgery Initial Evaluation Date: 01/21/2023 Referring Doctor: DEMETRA Solomon PT Orders: PT CONSULT: S/P Ortho surgery Precautions: WBAT on left LE with AD. Patient Profile/Admitting Diagnosis: PMHX: [] Social History/Home Situation: [] Equipment Owned/DME: [] Subjective: [] Objective: [] General Observation: [] Mental Status: [] Pain: [] ROM: [] Right Upper Extremity: [] Left Upper Extremity: [] Right Lower Extremity: [] Left Lower Extremity: [] Strength: [] Right Upper Extremity: [] Left Upper Extremity: [] Right Lower Extremity: [] Left Lower Extremity: [] Sensation: [] Bed Mobility/Transfers: [] Supine to sit [] Sit to stand [] Stand to sit [] Bed to chair [] Gait: [] Balance: [] Static Sitting: [] Dynamic Sitting: [] Static Standing: [] Dynamic Standing: [] Special Tests: [] Mobility Limitations Standardized Measure [] [facility] 6 clicks Basic Mobility Inpatient Short Form: [] Raw Score: [] CMS Score: [] Informed Consent/Education: Patient instructed in purpose of PT consult. Packet containing [] exercise protocol has been given to patient. Education and training on initial set of exercises that can be done at home have been completed with patient. Assessment: Patient presents with clinical signs and symptoms consistent with current/admitting diagnoses that have resulted to mobility limitations, gait instability, generalized weakness, and impairment of motor control as demonstrated by the following impairment level findings: 1. Decreased strength to left knee major muscle groups 2. Impaired standing balance 3. Limitation of joint range of motion in left knee Impairments are contributing to the following functional limitations: 1. Inability to safely ambulate without assistive device 2. Increase completion time for mobility ADL performance 3. Increased fall risk Patient is assessed as a [] complexity based on the following: History: []-year-old [] with impairment level findings, functional limitations, and past medical history as indicated above Examination: Demonstrable impairment in strength, balance, and mobility level with underlying impairments and functional limitations as documented above Presentation: [] Decision Making: [] Goals: N/A. PT evaluation and 1-2 treatment sessions only for functional mobility training using recommended AD and for HEP instruction. Plan of Care/Treatment Plan: N/A. PT evaluation and 1-2 treatment session only for functional mobility training using recommended AD and for HEP instruction. DISCHARGE RECOMMENDATIONS: [] TREATMENT CODE/TIME: [] Thank you for the opportunity to participate in the care of this patient.
[2023-01-31 13:34] VITALS: BP 180/100; PULSE 83; RESP 18; TEMP 36.7; O2SAT 97
[2023-01-31] MEDS: Benazepril 10 MG TAB 20 MG PO (15:22)
[2023-01-31] MEDS: Acetaminophen 325 MG TAB 650 MG PO (15:22)
[2023-01-31 15:29] VITALS: BP 142/86; PULSE 88; RESP 18; TEMP 36.5; O2SAT 94
[2023-01-31] MEDS: QUEtiapine 25 MG TAB PO (18:05)
[2023-02-01 05:05] VITALS: BP 176/92; PULSE 82; RESP 16; TEMP 36.6; O2SAT 97
[2023-02-01 07:30] LABS: Abs Immature Grans 0.02 10^3/uL (0.0-0.06); Absolute Basophil Count 0.03 10^3/uL (0.0-0.2); Absolute Eosinophil Count 0.19 10^3/uL (0.0-0.7); Absolute Lymphocyte Count 0.72 10^3/uL (1.2-3.4); Absolute Monocyte Count 0.46 10^3/uL (0.1-0.8); Absolute Neutrophil Count 4.69 10^3/uL (1.2-6.7); Basophils % 0.5; Eosinophils % 3.1; HCT 42.5 % (40.0-50.0); HGB 14.5 g/dL (13.5-17.5); Immature Grans % 0.3; Lymphocytes % 11.8; MCH 31.9 pg (27.0-33.0); MCHC 34.1 % (32.0-36.0); MCV 94 fL (80-95); MPV 10.4 fL (8.0-11.0); Monocytes % 7.5; Neutrophils % 76.8; Platelet Count 147 10^3/uL (130-400); RBC 4.54 10^6/uL (4.36-5.78); RDW 12.6 % (11.8-14.1); RDW-SD 43.6 fL; WBC 6.11 10^3/uL (4.4-10.8)
[2023-02-01 07:38] VITALS: BP 142/80; PULSE 80; RESP 18; TEMP 36.5; O2SAT 96
[2023-02-01 08:00] LABS: Anion Gap 6.7 mmol/L (3-11); BUN 15 mg/dL (7-18); CO2 28.3 mmol/L (21.0-32.0); CREATININE 1.3 mg/dL (0.70-1.30); Chloride 109 mmol/L (98-107); Glucose 77 mg/dL (74-106); Potassium 3.9 mmol/L (3.5-5.1); Sodium 144 mmol/L (136-145)
[2023-02-01] MEDS: Multivitamin TAB 1 TAB PO (08:50)
[2023-02-01] MEDS: Benazepril 10 MG TAB 20 MG PO (08:50)
[2023-02-01] MEDS: Acetaminophen 325 MG TAB 650 MG PO ×2 (08:50→15:53)
[2023-02-01] MEDS: Omeprazole 20 MG CAPCR PO (08:50)
[2023-02-01] MEDS: Cyanocobalamin 500 MCG TAB 1000 MCG PO (08:51)
--- NOTE | 2023-02-01 09:39 | PDOC.CMIN ---
Date of service: 02/01/23 Time of Service: 09:39 Care Management Initial Assmt Initial Assessment REASON FOR HOSPITALIZATION:: Pain, ambulatory dysfunction PREVIOUS FUNCTIONAL STATUS/SOCIAL/FAMILY SUPPORTS:: Hitesh lives in [place] with his , Chasity. They have three children. He uses a walker to ambulate, and is followed by Palliative care. His assists him with ADL's. CURRENT FUNCTIONAL STATUS:: Hitesh was sleeping when CM met with him. His , Chasity was in the room visiting. She stated that Hitesh often sleeps most of the day. Chasity shared how she has been able to care for Hitesh for years with dementia, and how difficult it has been at times. She was tearful in expressing that she is not sure that he is safe to remain in her care. CM discussed SNF options, and she agreed to referrals being sent to the [facility], [facility], [place], [facility], and the [place]. CM discussed barriers to placement including bed availability, skilled need requirement, and acceptance to a facility. Palliative has been consulted to discuss goals of care. CM will continue to follow. ADVANCE DIRECTIVES:: [employer] on file, as well as DPOA form. Chasity, , listed as agent and DPOA. Has patient been provided with info about the portal/API?: Yes Did the patient sign up for the portal?: No CODE STATUS:: DNR/DNI INSURANCE COVERAGE / FINANCIAL ISSUES:: MCR/ BCBS CURRENT HOME/COMMUNITY SERVICES/EQUIPMENT:: [facility] PRIMARY CARE PHYSICIAN:: Derek Leal POTENTIAL DISCHARGE NEEDS:: HH services vs SNF placement, follow up appointments. PATIENT/FAMILY EDUCATION NEEDS:: Review discharge plan including activity level and medications, discussion of self care needs and goals of care. ANTICIPATED BARRIERS TO DISCHARGE:: Continued evaluations needed to determine if Hitesh would be safe to return home. If not, he may require placement. TRANSPORTATION:: Dependent on disposition; private vehicle by family vs facility w/c van. PLAN:: Hitesh is being evaluated by PT to determine his functional mobility, which will direct his discharge plan. He may return home with new HH services vs SNF for short term rehab. His , Chasity, who is his DPOA, will work with CM to help guide his plan of care. He is followed by palliative care, who is consulted to meet with Hitesh during this admission. He will follow up with his PCP and discharge plan of care. CM will continue to follow. PFSH All Active Problems (Updated 02/01/23 @ 12:43 by Romy Zheng NP) Compression fracture of L1 lumbar vertebra (Acute) Discharge planning issues (Acute) Lewy body dementia without behavioral disturbance (Acute) Ambulatory dysfunction (Chronic) Frequent falls (Acute) Hyperglycemia (Acute) Orthostatic hypotension (Acute) POLST (Physician Orders for Life-Sustaining Treatment) (Acute) Completed 08/21/2020, DNR/DNI. 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 Lower urinary tract symptoms (LUTS) (Acute 06/20/17) trial Tamsulosin 05/2015, not benefit 08/2015 Hyperlipidemia (Acute 10/17/11) goal LDL<100; risk 25%; started med rx 02/2008 Essential hypertension (Acute) RX NOT WELL TOLERATED , CURRENT BENAZEPRIL SINCE 2007 Constipation (Acute 09/13/11) CHRONIC ; diverticulosis on colonoscopy; Dr Lozoya GI; hospitalized [facility] 11/2015 Chronic constipation (Acute) Medical History Constipation DJD (degenerative joint disease) Essential hypertension Heart burn Hyperlipidemia Obesity Osteoarthrosis involving shoulder region Small bowel obstruction Small bowel obstruction Tubular adenoma of colon Varicose veins Surgical History Arthroplasty of knee 1986 Arthroscopy, Shoulder 1986 Cholecystectomy (07/16/12) JOSIAS Colonoscopy - IV Sedation 2008 EGD - IV Sedation 2003-Dr. Devora Meléndez shoulder (01/15/14) Balbir Leblanc, ? total shoulder prosthesis Replacement of total knee joint (10/07/14) Rika narayanan, Balbir Booker Transurethral prostatectomy 1986 Family History Mother No problems noted. Father , stomach ca at age 64. No problems noted. Other Brain tumor Breast cancer Rheumatic fever Stomach cancer TIA (transient ischemic attack) Social History Smoking/Tobacco Use Status: Former Tobacco Use Smokeless tobacco user: other Smoking risk assessment performed?: Yes Alcohol Intake: never Drug use: Never Substance use type: does not use Household members: spouse Housing: house Number of Children: 3 Communication Needs: None Pets and animals: No Current gender identity: male What is your relationship status?: Panel score (0-1 are the most socially isolated patients): 1 What type of physical activity do you participate in: none Seatbelt use: always Drive intox or ride w/intox transporter driver: No Working smoke detector in home: Yes Fire extinguisher in home: No Carbon monox detector in home: Yes Do you feel safe at home: Yes Do you feel safe in your relationship?: Yes Additional Social history: Lives with Chasity
--- NOTE | 2023-02-01 10:19 | NUR.NOTE ---
Nursing Note: is at bedside, pt is growing increasingly more restless. pt denies pain, denies needing to use the restroom. difficult to communicate with pt as perception and understanding is no fully comprehended. bed alarm is in place and call amin is within reach
--- NOTE | 2023-02-01 12:40 | PGE_ITS ---
Date of Service Date of service: 02/01/23 Time of Service: 12:41 Assessment and Plan Assessment and plan (1) Compression fracture of L1 lumbar vertebra: Status: Acute Assessment and plan: pain seems well managed with current pain regimen continue scheduled apap, toradol prn and lidocaine patch, adjust as needed. (2) Ambulatory dysfunction: Status: Chronic Assessment and plan: fall at home, states this is not typical. continue PT fall precautions (3) Lewy body dementia without behavioral disturbance: Status: Acute Assessment and plan: anticipate delirium while hospitalized, responded well to seroquel yesterday, will schedule late afternoon as that's when he experienced increase confusion history of hallucinations safety precautions (4) Essential hypertension: Status: Acute Assessment and plan: continue home medication and monitor, adjust as needed (5) Discharge planning issues: Status: Acute Assessment and plan: case management for discharge planning anticipate a discharge to rehab per PT evaluation discussed with Dr Hartmann Subjective Subjective Patient reports: no new complaints, pain is less and afebrile; denies shortness of breath Interval history since last seen: pain seems better managed, re-ambulated with PT in the [place], no behavioral disturbances. remains pleasantly confused but redirected. Exam Const General: cooperative, comfortable and no acute distress Nutritional Appearance: obese Orientation: alert, awake and confused HENHI Head: normal to inspection, normocephalic and atraumatic Mouth: oral mucosae normal Chest Chest: normal inspection of the chest Resp Effort & Inspection: normal respiratory effort Auscultation: clear to auscultation bilaterally Cardio Rate: regular rate Rhythm: regular rhythm GI Inspection: normal to inspection Palpation: soft Auscultation: normal bowel sounds Skin General skin exam: no rashes or lesions noted Neuro General: patient alert, patient awake, no focal motor deficits and patient confused (at baseline according to ) Extrem General: normal to inspection and no pedal edema Objective Last Vital Signs Temp 36.5 C 02/01/23 07:38 Pulse 80 02/01/23 07:38 Resp 18 02/01/23 07:38 BP 142/80 H 02/01/23 07:38 Pulse Ox 96 02/01/23 07:38 Laboratory Results - last 24 hr 01/31/23 02/01/23 02/01/23 09:34 06:28 06:28 WBC 6.11 RBC 4.54 Hgb 14.5 Hct 42.5 MCV 94 MCH 31.9 MCHC 34.1 RDW 12.6 Plt Count 147 MPV 10.4 Immature Gran % 0.3 Neutrophils % 76.8 Lymphocytes % 11.8 Monocytes % 7.5 Eosinophils % 3.1 Basophils % 0.5 Nucleated RBC % 0.0 Absolute Neutrophils 4.69 Absolute Lymphocytes 0.72 L Absolute Monocytes 0.46 Absolute Eosinophils 0.19 Absolute Basophils 0.03 Sodium 144 Potassium 3.9 Chloride 109 H Carbon Dioxide 28.3 Anion Gap 6.7 BUN 15 Creatinine 1.3 Est GFR (CKD-EPI 2020) 53.50 Glucose 77 Calcium 9.0 Troponin I Cancelled Time Spent with Patient Time Spent with Patient: 35-49 minutes Time was spent: preparing to see the patient(eg.review tests), obtaining and/or reviewing separately otained hiistory, ordering medications,tests, procedures, referring, communicating with other health overnight caregiver and counseling the patient
--- NOTE | 2023-02-01 14:13 | PHA.REVIEW2 ---
Pharmacy Admission Review - Admission Clinical Review (Last Reviewed 11/25/22 @ 13:54 by Eli Randhawa NP) Compression fracture of L1 lumbar vertebra (Acute) Discharge planning issues (Acute) Lewy body dementia without behavioral disturbance (Acute) Essential hypertension (Acute) No Known Drug Allergies Allergy (Verified 07/07/22 13:46) Resuscitation Status DNR/DNI Height 5 ft 10 in Weight 113 kg - Renal Dosing Renal Dosing: BUN 15 mg/dL (7-18) 02/01/23 06:28 Creatinine 1.3 mg/dL (0.70-1.30) 02/01/23 06:28 Medications needing adjustments: Reviewed (Crcl ~51.3 mL/min current meds okay) - Anticoagulation Anticoagulation: Hgb 14.5 g/dL (13.5-17.5) 02/01/23 06:28 Hct 42.5 % (40.0-50.0) 02/01/23 06:28 Plt Count 147 10^3/uL (130-400) 02/01/23 06:28 Creatinine 1.3 mg/dL (0.70-1.30) 02/01/23 06:28 DVT Prophylaxis: Reviewed (fall prior to admission/ambulatory dysfunction; TEDs ordered) Therapeutic Anticoagulation: N/A - Opiate Usage Evaluate Pain Scale/Pains Meds: N/A - Relevant Labs Sodium 144 mmol/L (136-145) 02/01/23 06:28 Potassium 3.9 mmol/L (3.5-5.1) 02/01/23 06:28 Chloride 109 mmol/L (98-107) H 02/01/23 06:28 Electrolytes, C-Reactive P, ESR: Reviewed - DM Control DM Control: Glucose 77 mg/dL (74-106) 02/01/23 06:28 DM Control: Reviewed (BG within normal limits, no DM noted in medical history, no A1c on file) - Cardiac Review Cardiac Review: Troponin I Cancelled 01/31/23 09:34 BP, HR, EF%: Reviewed (BP still a bit elevated but better than it was on admission) - Qtc Review QTc: Reviewed (QTc 457 on admission) - IV to PO Switch IV Medications: Reviewed - Home Meds Home Med List reviewed: Reviewed Relevent Home Meds Not ordered & why?: all home meds are currently ordered - Current meds Current Medication Order Review: Intervened (Fentanyl order from the ED was still active, asked provider if it was still needed. Med was discontinued.) - Comments Comments/Follow Ups: Watch BP, SCr, labs and for med changes (possible renal dose adjustments).
[2023-02-01 14:58] VITALS: BP 148/65; PULSE 81; RESP 18; TEMP 36.5; O2SAT 95
[2023-02-01] MEDS: QUEtiapine 25 MG TAB PO (15:53)
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
[2023-02-01] MEDS: Cyclobenzaprine 10 MG TAB 5 MG PO (18:15)
[2023-02-01 23:17] VITALS: BP 129/83; PULSE 80; RESP 20; TEMP 36.9; O2SAT 96
[2023-02-02] MEDS: Cyclobenzaprine 10 MG TAB 5 MG PO ×2 (04:31→08:59)
[2023-02-02 07:41] VITALS: BP 144/86; PULSE 81; RESP 20; TEMP 36.3; O2SAT 97
[2023-02-02] MEDS: Acetaminophen 325 MG TAB 650 MG PO (08:58)
[2023-02-02] MEDS: QUEtiapine 25 MG TAB PO ×2 (08:58→15:41)
[2023-02-02] MEDS: Omeprazole 20 MG CAPCR PO (08:58)
[2023-02-02] MEDS: Cyanocobalamin 500 MCG TAB 1000 MCG PO (08:59)
[2023-02-02] MEDS: Multivitamin TAB 1 TAB PO (08:59)
[2023-02-02] MEDS: Benazepril 10 MG TAB 20 MG PO (09:02)
[2023-02-02] MEDS: Lidocaine 5% Patch 1 PATCH TP (09:03)
--- NOTE | 2023-02-02 09:09 | NUR.NOTE ---
Nursing Note: has increased agitation today.difficult to perform adls and adminster medication. pt is aggressive with staff. charge nurse was notified.
--- NOTE | 2023-02-02 09:34 | CMPROGNOTE_ITS ---
Date of service: 02/02/23 Time of Service: 09:34 Care Management Progress Note Progress Note Text Progress Note Text: S/O: Hitesh was sleeping when CM met with him. His , Chasity was in the room visiting. CM shared that Hitesh has received a bed offer from [facility] for tomorrow. CM reviewed options, including Hitesh returning home with HH services vs accepting the bed offer at [facility]. CM followed up with the other referrals, and has not received an additional bed offer at this point, although it is being [facility] by [facility]. [facility] is Chasity's first choice, as it is close to her home. CM called and left a message with [facility]. CM provided a local intermodal truck driver [facility] application to Chasity, as it was discussed that he may require halfway care vs additional support at home once he is ready for discharge. CM will continue to follow. A: Jose is an 87 year old male admitted to [facility] on 01/31/23 for ambulatory dysfunction, pain. P: Hitesh is being evaluated by PT to determine his functional mobility, which will direct his discharge plan. He may return home with new HH services vs SNF for short term rehab. His , Chasity, who is his DPOA, will work with CM to help guide his plan of care. He is followed by palliative care, who is consulted to meet with Hitesh during this admission. He will follow up with his PCP and discharge plan of care. CM will continue to follow.
--- NOTE | 2023-02-02 11:04 | W.PM.PROGNOT ---
Date of Service Date of service: 02/02/23 Time of Service: 11:04 Assessment and Plan Assessment and plan (1) Compression fracture of L1 lumbar vertebra: Status: Acute Assessment and plan: pain well managed with current pain regimen continue scheduled apap, toradol prn and lidocaine patch, adjust as needed. (2) Ambulatory dysfunction: Status: Chronic Assessment and plan: fall at home, states this is not typical. continue PT fall precautions (3) Lewy body dementia without behavioral disturbance: Status: Acute Assessment and plan: anticipate delirium while hospitalized, responded well to seroquel yesterday, will schedule late afternoon as that's when he experienced increase confusion, add am scheduled dosing for symptom management history of hallucinations safety precautions (4) Essential hypertension: Status: Acute Assessment and plan: continue home medication and monitor, adjust as needed (5) Discharge planning issues: Status: Acute Assessment and plan: case management for discharge planning may be safe for discharge to home with increased services. discussed with Dr Hartmann Subjective Subjective Patient reports: no new complaints, feels better, tolerating liquids well, tolerating a regular diet and afebrile; denies shortness of breath Interval history since last seen: some increased confusion and agitation this morning. Exam Const General: cooperative, comfortable and no acute distress Nutritional Appearance: obese Orientation: alert, awake and confused HENMT Head: normal to inspection, normocephalic and atraumatic Mouth: oral mucosae normal Chest Chest: normal inspection of the chest Resp Effort & Inspection: normal respiratory effort Auscultation: clear to auscultation bilaterally Cardio Rate: regular rate Rhythm: regular rhythm GI Inspection: normal to inspection Palpation: soft Auscultation: normal bowel sounds Skin General skin exam: no rashes or lesions noted Neuro General: patient alert, patient awake, no focal motor deficits and patient confused (at baseline according to ) Extrem General: normal to inspection and no pedal edema Objective Last Vital Signs Temp 36.3 C L 02/02/23 07:41 Pulse 81 02/02/23 07:41 Resp 20 02/02/23 07:41 BP 144/86 H 02/02/23 07:41 Pulse Ox 97 02/02/23 07:41 Time Spent with Patient Time Spent with Patient: 35-49 minutes Time was spent: preparing to see the patient(eg.review tests), obtaining and/or reviewing separately otained hiistory and care coordination
--- NOTE | 2023-02-02 15:47 | NUR.NOTE ---
Nursing Note: pt is increasingly agitated and attempted to hit this rn when administering medications.
--- NOTE | 2023-02-02 16:52 | PT.INTREAT ---
PT Notes Visit Reasons: Pain Subjective: Pt in bed when approached for therapy this morning, pt in elopement mode and was kept in bed for safety. Therapeutic procedures 42310 15mins: Instruction in therapeutic exercises to develop strength and endurance, range of motion and flexibility. Provided skilled instruction in proper exercise performance: Provided skilled manual cues to facilitate proper muscle recruitment and/or movement pattern: Supine bed level activity doing heel slides, clamshells, SLR, ankle pump and rolling which was avoided since pt would insist on getting aout of bed and going outside to his car according to pt since he could see it from across the window. Assessment: Pt required max redirection to get pt to focus on task, Gait training not attempted today since pt is in elopement mode. Plan: Continue as per POC
--- NOTE | 2023-02-02 17:26 | NUR.NOTE ---
Nursing Note: this rn was notified of pt having laura cheeks. he has had laura cheeks all day but the lnas thought it was getting worse. this rn assessed temp and it was 36.9 tympanic. attempted to check bp but pt was thrashing and made it impossible. attemped bp in upper arm and lower leg with no success. will attempt to reassess when pt is more calm
--- NOTE | 2023-02-03 03:59 | NUR.NOTE ---
Pt continues to refuse most care, will not agree to roll to check if he is wet, combative and frustrated when you try. Patient offered water, food but this only angered him and was batted away. Patient was repositioned despite his protests. wctm.
[2023-02-03] MEDS: Omeprazole 20 MG CAPCR PO (07:37)
--- NOTE | 2023-02-03 10:01 | PDOC.CMPRO ---
Date of service: 02/03/23 Time of Service: 10:01 Care Management Progress Note Progress Note Text Progress Note Text: S/O: Jose is medically ready for discharge per provider. Bed offer at [facility] is accepted. CM will coordinate discharge and EMS transportation. A: Jose is an 87 year old male admitted to [facility] on 01/31/23 for ambulatory dysfunction, pain. P: Hitesh is being evaluated by PT to determine his functional mobility, which will direct his discharge plan. He may return home with new services vs SNF for short term rehab. His , Chasity, who is his DPOA, will work with CM to help guide his plan of care. He is followed by palliative care, who is consulted to meet with Hitesh during this admission. He will follow up with his PCP and discharge plan of care. CM will continue to follow.
[2023-02-03] MEDS: Lidocaine 5% Patch 1 PATCH TP (10:12)
--- NOTE | 2023-02-03 10:43 | W.PM.DS.N ---
Date of service: 02/03/23 Time of Service: 10:43 DS: Diagnosis Discharge Diagnosis (1) Compression fracture of L1 lumbar vertebra: Status: Acute (2) Ambulatory dysfunction: Status: Chronic (3) Lewy body dementia without behavioral disturbance: Status: Acute (4) Essential hypertension: Status: Acute (5) Discharge planning issues: Status: Acute Discharge Plan Disposition Patient Disposition: Shelter Facility(SNF) Condition: Fair Discharge Details Reason For Visit: Pain Admit Date/Time: 01/31/23 12:05 Admit Provider: Olivier Solorzano Attending Provider: Olivier Solorzano Primary Care Provider: Derek Leal [facility] Hospital Course: This is an 87 year old male patient with Lewy Body Dementia, who presented to the [facility] after having a witnessed mechanical fall at home.?He was unable to be reambulated in the ED. Imaging showed no acute fracture, He was admitted to the hospital for pain control and physical therapy. He experienced some agitation, thought to be hospital delirium and was started on Seroquel with good results. He does have a history of hallucinations. He worked with PT and they recommended he be discharged to SNF; he has difficulty processing instruction and executing commands. He requires frequent redirection. He is unable to perform ADLs independently. His pain is controlled with lidocaine patches to his lower back and cyclobenzaprine as needed. He is being discharged to [facility], stable vital signs at baseline. ? Home Meds and New Rx's Prescriptions: New quetiapine 25 mg Tablet 25 mg PO 1600 Qty: 0 0RF quetiapine 25 mg Tablet 25 mg PO BID PRN (Reason: Agitation) Qty: 0 0RF cyclobenzaprine 10 mg Tablet 5 mg PO TID PRN (Reason: spasms) Qty: 0 0RF lidocaine 5 % Adhesive Patch,Medicated 1 patch topical Q24H Qty: 0 0RF Continued benazepril 20 mg tablet 20 mg PO DAILY Qty: 1 0RF omeprazole 20 mg capsule,delayed release(DR/EC) 20 mg PO DAILY Qty: 1 0RF cyanocobalamin (vitamin B-12) 1,000 mcg capsule 1,000 mcg PO DAILY multivitamin [Daily Multi-Vitamin] 1 EACH tablet 1 ea PO DAILY sennosides [Senokot] 8.6 mg Tablet 1 tab PO BID PRN PRNQty: 20 0RF Discharge Instructions Referrals: Derek Leal DO [Primary Care Provider] - (1-2 weeks) Activity:: Activity as Tolerated Equipment/Supplies:: No Equipment Needed Diet:: As Tolerated DS: Summary Time Spent with Patient providing and/or coordinating discharge services: Greater than 30 minutes Status at Discharge Functional status at discharge: uses cane/walker Overall status at discharge: patient is progressing back to baseline Mental Status: other (dementia, confused, doesn't follow commands) Speech and Movement: speech and movement normal Mood: anxious mood and other (dementia, confused, doesn't follow commands) Affect: labile affect Exam Const General: cooperative, comfortable and no acute distress Nutritional Appearance: obese Orientation: alert, awake and confused HENMT Head: normal to inspection, normocephalic and atraumatic Mouth: oral mucosae normal Chest Chest: normal inspection of the chest Resp Effort & Inspection: normal respiratory effort Auscultation: clear to auscultation bilaterally Cardio Rate: regular rate Rhythm: regular rhythm GI Inspection: normal to inspection Palpation: soft Auscultation: normal bowel sounds Skin General skin exam: no rashes or lesions noted Neuro General: patient alert, patient awake, no focal motor deficits and patient confused (at baseline according to ) Extrem General: normal to inspection and no pedal edema Psych Mental Status: other (dementia, confused, doesn't follow commands) Speech and Movement: speech and movement normal Mood: anxious mood and other (dementia, confused, doesn't follow commands) Affect: labile affect DS: Data Vitals/I&O Vitals and I&O: Vital Signs Temperature 36.3 C L 02/02/23 07:41 Temperature Source Tympanic 02/02/23 07:41 Pulse 81 02/02/23 07:41 Pulse Rhythm Regular 02/03/23 07:45 Respiratory Rate 20 02/02/23 07:41 Respiratory Effort Normal 02/03/23 07:45 Respiratory Depth Normal 02/03/23 07:45 Respiratory Pattern Normal 02/03/23 07:45 Blood Pressure 144/86 H 02/02/23 07:41 Pulse Oximetry 97 02/02/23 07:41 Oxygen Delivery Method Room Air 02/02/23 07:41 Oxygen Flow Rate 0 02/02/23 07:41 Pain Level 6 02/02/23 08:50 Comment pt would not let me get vitals 02/02/23 23:00 Intake & Output 02/02/23 02/02/23 02/03/23 11:59 23:59 11:59 Intake Total Balance Weight 102.285 kg 103 kg Intake: Oral Other: Urine Color Yellow Comment heavily incont dry at this time diaper change. wet Stool Size Smear Stool Characteristics Soft Brown Voiding Methods Diaper Diaper Diaper Incontinent Incontinent PFSH All Active Problems (Updated 02/01/23 @ 12:43 by Romy Zheng NP) Compression fracture of L1 lumbar vertebra (Acute) Discharge planning issues (Acute) Lewy body dementia without behavioral disturbance (Acute) Ambulatory dysfunction (Chronic) Frequent falls (Acute) Hyperglycemia (Acute) Orthostatic hypotension (Acute) POLST (Physician Orders for Life-Sustaining Treatment) (Acute) Completed 08/21/2020, DNR/DNI. 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 Lower urinary tract symptoms (LUTS) (Acute 06/20/17) trial Tamsulosin 05/2015, not benefit 08/2015 Hyperlipidemia (Acute 10/17/11) goal LDL<100; risk 25%; started med rx 02/2008 Essential hypertension (Acute) RX NOT WELL TOLERATED , CURRENT BENAZEPRIL SINCE 2007 Constipation (Acute 09/13/11) CHRONIC ; diverticulosis on colonoscopy; Dr Lozoya GI; hospitalized [facility] 11/2015 Chronic constipation (Acute) Medical History Constipation DJD (degenerative joint disease) Essential hypertension Heart burn Hyperlipidemia Obesity Osteoarthrosis involving shoulder region Small bowel obstruction Small bowel obstruction Tubular adenoma of colon Varicose veins Surgical History Arthroplasty of knee 1986 Arthroscopy, Shoulder 1987 Cholecystectomy (07/16/12) JOSIAS Colonoscopy - IV Sedation 2008 EGD - IV Sedation 2003-Dr. Devora Meléndez shoulder (01/15/14) Dr. Jhonny Espinoza [place], ? total shoulder prosthesis Replacement of total knee joint (10/07/14) Dr Marco Figueroa [place] Transurethral prostatectomy 1986 Family History Mother No problems noted. Father , stomach ca at age 64. No problems noted. Other Brain tumor Breast cancer Rheumatic fever Stomach cancer TIA (transient ischemic attack) Social History Smoking/Tobacco Use Status: Former Tobacco Use Smokeless tobacco user: other Smoking risk assessment performed?: Yes Alcohol Intake: never Drug use: Never Substance use type: does not use Household members: spouse Housing: house Number of Children: 3 Communication Needs: None Pets and animals: No Current gender identity: male What is your relationship status?: Panel score (0-1 are the most socially isolated patients): 1 What type of physical activity do you participate in: none Seatbelt use: always 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
--- NOTE | 2023-02-03 10:49 | PDOC.CMDIS ---
Date of service: 02/03/23 Time of Service: 10:49 LACE Index Scoring Tool Questions: Length of Stay (in days): 3 Was the patient admitted via the E.D.?: Yes Comorbidities: Mild Liver/Renal Disease and Dementia E.D. Visits: 1 Answers: Total Score: 12 Risk of Readmission: High Risk Care Management Discharge Plan Reason for Hospitalization: Pain, ambulatory dysfunction Discharge Plan: Jose is discharged to [facility] for STR. He is transported by [facility], coordinated by KIMI. Jose will follow up with facility/community providers and discharge plan as instructed. Patient/Family Education Needs: Review discharge instructions, limitations, medications and plan to follow up with facility and community providers. Discuss ask me three. Services Needed at Discharge: [facility] Facility ([facility]) and Transportation ([facility], Coordinated by CM)
--- NOTE | 2023-02-03 11:02 | W.PALLCONSUL ---
Date of service: 02/03/23 Time of Service: 11:02 History of Present Illness Narrative: Hitesh was seen in his room at the hospital. His , Chasity was present for the visit. He was transported to the ED via EMS after falling and hitting his head at home when attempting to get out of bed. His imaging showed possible L1 compression fracture. Chasity has come to the realization that she will not be able to care for him at home. Referrals were placed and he was accepted at [facility]. She would like to get him closer, the [facility] would be best for her. He was agitated during the hospitalization and was started on Seroquel. He appears to be in good spirits today. He is awake and alert but unable to provide Hx/answer questions. Assessment and Plan Assessment and plan (1) Compression fracture of L1 lumbar vertebra: Status: Acute (2) Lewy body dementia without behavioral disturbance: Status: Acute (3) Frequent falls: Status: Acute (4) POLST (Physician Orders for Life-Sustaining Treatment): Status: Acute (5) DNI (do not intubate): Status: Acute (6) DNR (do not resuscitate): Status: Acute (7) Chronic kidney disease: Status: Chronic (8) Hyperlipidemia: Status: Acute (9) Essential hypertension: Status: Acute (10) Goals of care, counseling/discussion: Status: Acute (11) Advanced care planning/counseling discussion: Status: Acute (12) Ambulatory dysfunction: Status: Chronic (13) Palliative care patient: Status: Acute Assessment and plan: Hitesh is a very pleasant 87 year old man with advancing dementia with lewy bodies, falls, CKD, HTN, HLD who had a fall at home and hit his head. He was brought to the ED via EMS. He was found to have a possible L1 compression fx. He also had some agitation and was started on seroquel with good effect. His is unable to take him home, she has been caring for him up until the point of this hospitalization. He has been accepted at [facility] with plans to move him closer when able. Chasity would prefer [facility] since it is very close to her home. . He has previously been seen by Palliative and is a DNR/DNI with [facility] on file. Palliative will follow up when he returns to the area. His states she will contact the office to schedule. Review of Systems Narrative: Unable due to mental status. PFSH All Active Problems (Updated 02/10/23 @ 13:47 by Eli Randhawa NP) Palliative care patient (Acute) Advanced care planning/counseling discussion (Acute) Goals of care, counseling/discussion (Acute) Compression fracture of L1 lumbar vertebra (Acute) Lewy body dementia without behavioral disturbance (Acute) Ambulatory dysfunction (Chronic) Frequent falls (Acute) Hyperglycemia (Acute) Orthostatic hypotension (Acute) POLST (Physician Orders for Life-Sustaining Treatment) (Acute) Completed 08/21/2020, DNR/DNI. 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 Lower urinary tract symptoms (LUTS) (Acute 06/20/17) trial Tamsulosin 05/2015, not benefit 08/2015 Hyperlipidemia (Acute 10/17/11) goal LDL<100; risk 25%; started med rx 02/2008 Essential hypertension (Acute) RX NOT WELL TOLERATED , CURRENT BENAZEPRIL SINCE 2007 Constipation (Acute 09/13/11) CHRONIC ; diverticulosis on colonoscopy; Dr Lozoya GI; hospitalized [facility] 11/2015 Chronic constipation (Acute) Medical History Constipation DJD (degenerative joint disease) Essential hypertension Heart burn Hyperlipidemia Obesity Osteoarthrosis involving shoulder region Small bowel obstruction Small bowel obstruction Tubular adenoma of colon Varicose veins Surgical History Arthroplasty of knee 1986 Arthroscopy, Shoulder 1987 Cholecystectomy (07/16/12) JOSIAS Colonoscopy - IV Sedation 2008 EGD - IV Sedation 2003-Dr. Devora Meléndez shoulder (01/15/14) Balbir Leblanc, ? total shoulder prosthesis Replacement of total knee joint (10/07/14) Rika narayanan, Balbir Booker Transurethral prostatectomy 1986 Family History Mother No problems noted. Father , stomach ca at age 64. No problems noted. Other Brain tumor Breast cancer Rheumatic fever Stomach cancer TIA (transient ischemic attack) Social History Smoking/Tobacco Use Status: Former Tobacco Use Smokeless tobacco user: other Smoking risk assessment performed?: Yes Alcohol Intake: never Drug use: Never Substance use type: does not use Household members: spouse Housing: house Number of Children: 3 Communication Needs: None Pets and animals: No Current gender identity: male What is your relationship status?: Panel score (0-1 are the most socially isolated patients): 1 What type of physical activity do you participate in: none Seatbelt use: always Drive 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 He is awake and alert, appears to be in good spirits but unable to provide answers to any questions. He attempts to talk but his speech is not clear. Tries to get OOB at times. HEENT: normocephalic, atraumatic, EOMI, mm dry. Neck: supple. Respiratory: respirations appear even and unlabored. Extremities: moves all 4 extremities freely. Results Last Vital Signs Temp 36.3 C L 02/02/23 07:41 Pulse 81 02/02/23 07:41 Resp 20 02/02/23 07:41 BP 144/86 H 02/02/23 07:41 Pulse Ox 97 02/02/23 07:41 Labs 02/01/23 06:28 02/01/23 06:28
--- NOTE | 2023-02-03 11:52 | CHAPLAIN ---
Hitesh was sleeping when I visited. I spoke with his Chasity. She said Hitesh is being discharged today and will be going to [facility] in [place], [place]. She was hoping he could stay at a facility closer to home but there aren't any appropriate beds available. Chasity said that Hitesh sleeps much of the time and really doesn't know what's going on. She said she believes this is better for him. Hitesh was diagnosed with dementia a few years ago, and fell at home recently which led to his admission. Chasity said they are from [place] originally and moved to [place] because Hitesh had liked hunting and vacationing up here. They have friends and neighbors who are supportive, according to Chasity.
[2023-02-03] MEDS: Acetaminophen 325 MG TAB 650 MG PO (12:36)
--- NOTE | 2023-02-03 13:16 | NUR.NOTE ---
Discharge to [facility] via EMS via stretcher. NO distress noted. Pt unable to follow instructions, lots of prompting. No pain noted. d/c 0527. Pt belongings return to pt's .Nursing Note:
== END 2023-02-03 13:13 | disposition skilled nursing facility (03) | DRG 552 ==
LOC: ER 12:38 → MS 13:12
PROVIDERS: Emergency Medicine; Nurse Practitioner Acute Care; Admitting Provider Internal Medicine; Emergency Provider Emergency Medicine; PCP Family Medicine; Visit Provider Internal Medicine
DX: S32.010A Wedge compression fracture of first lumbar vertebra, initial encounter for closed fracture (principal); F05 Delirium due to known physiological condition; G31.83 Neurocognitive disorder with Lewy bodies; D64.9 Anemia, unspecified; D69.6 Thrombocytopenia, unspecified; N18.9 Chronic kidney disease, unspecified; F02.80 Dementia in other diseases classified elsewhere, unspecified severity, without behavioral disturbance, psychotic disturbance, mood disturbance, and anxiety; R29.6 Repeated falls; Z91.81 History of falling; R73.9 Hyperglycemia, unspecified; I95.1 Orthostatic hypotension; E66.9 Obesity, unspecified; M54.42 Lumbago with sciatica, left side; E78.5 Hyperlipidemia, unspecified; I12.9 Hypertensive chronic kidney disease with stage 1 through stage 4 chronic kidney disease, or unspecified chronic kidney disease; Z68.32 Body mass index [BMI] 32.0-32.9, adult; K59.09 Other constipation; K57.30 Diverticulosis of large intestine without perforation or abscess without bleeding; Z87.891 Personal history of nicotine dependence; Z66 Do not resuscitate; W01.190A Fall on same level from slipping, tripping and stumbling with subsequent striking against furniture, initial encounter; R45.1 Restlessness and agitation
CPT/HCPCS: 36415; 71250; 73552; 80048; 93005; 96374; 96375; 97162; 97530; 99285; 70450; 72125; 74176; 80320; 84484; 85025; 93010; 99222; 99233; 99239; J1885; J3010